=== PATIENT | female | born 1995 | race Caucasian/White ===

== ENCOUNTER → 2022-08-07 | Outpatient (CLI) | payer OTHER, SELFPAY ==
[2022-08-07 10:00] LABS: Absolute Lymphocyte Count 1.49 X10^3/uL (0.83-4.51); Absolute Neutrophil Count 1.9 X10^3/uL (2.0-7.7); Basophil# 0.03 X10^3/uL; Basophil% 0.8 % (0-1); Eosinophil# 0.05 X10^3/uL; Eosinophils% 1.3 % (0-5); Hematocrit 37.4 % (37-47); Hemoglobin 11.2 g/dL (12.0-15.0); Lymphocyte # 1.49 X10^3/ul (0.83-4.51); Lymphocyte % 38.5 % (19-41); Mean Corp Hgb Conc 29.9 g/dL (32-36); Mean Corpuscular Hgb 24.7 pg (27.0-32.0); Mean Corpuscular Volume 82.4 fL (81-99); Mean Platelet Vol. 12.1 fl (6.2-12.0); Monocyte# 0.36 X10^3/uL; Monocyte% 9.3 % (0-10); NRBC Flagged by Analyzer 0 % (0-5); Neutrophil # 1.93 X10^3/uL (2.7-7.7); Neutrophil % 49.8 % (47-70); Platelet Count 217 K/mm3 (150-450); RBC Distribution Width CV 14.6 % (11.6-14.6); RBC Distribution Width SD 43.8 fl (35.1-43.9); Red Blood Count 4.54 M/mm3 (4.2-5.4); White Blood Count 3.9 K/mm3 (4.4-11.0)
[2022-08-07 10:41] LABS: Vitamin B12 831 pg/mL (211-911)
[2022-08-07 11:20] LABS: ALB/GLOB Ratio 0.9 RATIO (0.9-2.4); AST(SGOT) 18 U/L (15-37); Alanine Aminotransfer ALT/SGPT 17 U/L (13-56); Albumin, Serum 3.2 g/dL (3.2-5.0); Alkaline Phosphatase 39 U/L (45-117); Anion Gap 7 (5-15); BUN 9 mg/dL (7-18); BUN/Creat Ratio 10.5 RATIO (10-20); Calcium,Total 8.6 mg/dL (8.5-10.1); Chloride 111 mmol/L (98-107); Creatinine, Serum 0.86 mg/dL (0.55-1.02); EST Glomerular Filtration Rate 86 mL/min (>60); Est Glom Filt Rate - Afr Amer 104 mL/min (>60); Ferritin 4 ng/mL (8-252); Globulin 3.6 g/dL (2.2-4.2); Glucose 91 mg/dL (74-106); Iron 34 ug/dL (50-170); Protein, Total 6.8 g/dL (6.4-8.2); Sodium Level 142 mmol/L (136-145); Thyroid Stim Hormone (TSH) 1.78 uIU/mL (0.358-3.74)
== END | disposition home or self-care (01) ==
LOC: MFPLAB 09:23
PROVIDERS: PCP Family Medicine; Referring Provider Family Medicine; Visit Provider Family Medicine
DX: D64.9 Anemia, unspecified (principal); F41.9 Anxiety disorder, unspecified
CPT/HCPCS: 36415; 80053; 82607; 82728; 82746; 83540; 84443; 85025

== ENCOUNTER → 2022-09-04 | Outpatient (CLI) | payer OTHER, SELFPAY ==
[2022-09-04 17:45] LABS: Absolute Lymphocyte Count 1.92 X10^3/uL (0.83-4.51); Absolute Neutrophil Count 2.5 X10^3/uL (2.0-7.7); Basophil# 0.04 X10^3/uL; Basophil% 0.8 % (0-1); Eosinophil# 0.07 X10^3/uL; Eosinophils% 1.4 % (0-5); Hematocrit 37.8 % (37-47); Hemoglobin 11.6 g/dL (12.0-15.0); Lymphocyte # 1.92 X10^3/ul (0.83-4.51); Lymphocyte % 38.3 % (19-41); Mean Corp Hgb Conc 30.7 g/dL (32-36); Mean Corpuscular Hgb 25.6 pg (27.0-32.0); Mean Corpuscular Volume 83.4 fL (81-99); Mean Platelet Vol. 12.7 fl (6.2-12.0); Monocyte# 0.52 X10^3/uL; Monocyte% 10.4 % (0-10); NRBC Flagged by Analyzer 0 % (0-5); Neutrophil # 2.45 X10^3/uL (2.7-7.7); Neutrophil % 48.9 % (47-70); Platelet Count 218 K/mm3 (150-450); RBC Distribution Width CV 15.9 % (11.6-14.6); RBC Distribution Width SD 47.8 fl (35.1-43.9); Red Blood Count 4.53 M/mm3 (4.2-5.4)
[2022-09-04 18:13] LABS: Ferritin 11 ng/mL (8-252); Iron 73 ug/dL (50-170); Iron Binding Capacity,Total 464 ug/dL (250-450)
== END | disposition home or self-care (01) ==
LOC: MFPLAB 14:51
PROVIDERS: PCP Family Medicine; Referring Provider Family Medicine; Visit Provider Family Medicine
DX: D50.9 Iron deficiency anemia, unspecified (principal)
CPT/HCPCS: 36415; 82728; 83540; 83550; 85025

== ENCOUNTER → 2022-09-30 | Outpatient (CLI) | payer OTHER, SELFPAY ==
[2022-09-30 17:48] LABS: Absolute Lymphocyte Count 2.39 X10^3/uL (0.83-4.51); Absolute Neutrophil Count 3.8 X10^3/uL (2.0-7.7); Basophil# 0.06 X10^3/uL; Basophil% 0.9 % (0-1); Eosinophil# 0.15 X10^3/uL; Eosinophils% 2.2 % (0-5); Hematocrit 40.3 % (37-47); Lymphocyte # 2.39 X10^3/ul (0.83-4.51); Lymphocyte % 34.5 % (19-41); Mean Corp Hgb Conc 32.3 g/dL (32-36); Mean Corpuscular Volume 83.8 fL (81-99); Mean Platelet Vol. 11.9 fl (6.2-12.0); Monocyte# 0.52 X10^3/uL; Monocyte% 7.5 % (0-10); NRBC Flagged by Analyzer 0 % (0-5); Neutrophil # 3.79 X10^3/uL (2.7-7.7); Neutrophil % 54.8 % (47-70); Platelet Count 239 K/mm3 (150-450); RBC Distribution Width CV 15.3 % (11.6-14.6); Red Blood Count 4.81 M/mm3 (4.2-5.4); White Blood Count 6.9 K/mm3 (4.4-11.0)
[2022-09-30 18:35] LABS: Ferritin 10 ng/mL (8-252); Iron 95 ug/dL (50-170); Iron Binding Capacity,Total 482 ug/dL (250-450); PERCENT IRON SATURATION 19.7 % (15.0-55.0)
== END | disposition home or self-care (01) ==
LOC: MFPLAB 16:51
PROVIDERS: PCP Family Medicine; Referring Provider Family Medicine; Visit Provider Family Medicine
DX: D50.9 Iron deficiency anemia, unspecified (principal)
CPT/HCPCS: 36415; 82728; 83540; 83550; 85025

== ENCOUNTER → 2022-11-27 | Outpatient (CLI) | payer OTHER, SELFPAY ==
[2022-11-27 17:41] LABS: Absolute Lymphocyte Count 1.94 X10^3/uL (0.83-4.51); Absolute Neutrophil Count 2.2 X10^3/uL (2.0-7.7); Basophil# 0.04 X10^3/uL; Basophil% 0.8 % (0-1); Eosinophil# 0.09 X10^3/uL; Eosinophils% 1.9 % (0-5); Hematocrit 40.3 % (37-47); Hemoglobin 12.8 g/dL (12.0-15.0); Lymphocyte # 1.94 X10^3/ul (0.83-4.51); Lymphocyte % 40.9 % (19-41); Mean Corp Hgb Conc 31.8 g/dL (32-36); Mean Corpuscular Hgb 28.3 pg (27.0-32.0); Monocyte# 0.46 X10^3/uL; Monocyte% 9.7 % (0-10); NRBC Flagged by Analyzer 0 % (0-5); Neutrophil # 2.19 X10^3/uL (2.7-7.7); Neutrophil % 46.3 % (47-70); Platelet Count 251 K/mm3 (150-450); RBC Distribution Width CV 13.3 % (11.6-14.6); RBC Distribution Width SD 43.1 fl (35.1-43.9); Red Blood Count 4.53 M/mm3 (4.2-5.4); White Blood Count 4.7 K/mm3 (4.4-11.0)
[2022-11-27 18:11] LABS: Ferritin 17 ng/mL (8-252); Iron 77 ug/dL (50-170); Iron Binding Capacity,Total 415 ug/dL (250-450)
== END | disposition home or self-care (01) ==
LOC: MFPLAB 14:49
PROVIDERS: PCP Family Medicine; Referring Provider Family Medicine; Visit Provider Family Medicine
DX: D50.9 Iron deficiency anemia, unspecified (principal)
CPT/HCPCS: 36415; 82728; 83540; 83550; 85025

== ENCOUNTER → 2023-01-29 | Outpatient (CLI) | payer OTHER, SELFPAY ==
[2023-01-29 18:01] LABS: Absolute Lymphocyte Count 1.63 X10^3/uL (0.83-4.51); Absolute Neutrophil Count 3.1 X10^3/uL (2.0-7.7); Basophil# 0.04 X10^3/uL; Basophil% 0.7 % (0-1); Eosinophil# 0.17 X10^3/uL; Eosinophils% 3.1 % (0-5); Hematocrit 41.5 % (37-47); Hemoglobin 13.6 g/dL (12.0-15.0); Lymphocyte # 1.63 X10^3/ul (0.83-4.51); Lymphocyte % 29.6 % (19-41); Mean Corp Hgb Conc 32.8 g/dL (32-36); Mean Corpuscular Hgb 29.3 pg (27.0-32.0); Mean Corpuscular Volume 89.4 fL (81-99); Mean Platelet Vol. 11.7 fl (6.2-12.0); Monocyte# 0.59 X10^3/uL; Monocyte% 10.7 % (0-10); NRBC Flagged by Analyzer 0 % (0-5); Neutrophil # 3.06 X10^3/uL (2.7-7.7); Neutrophil % 55.5 % (47-70); Platelet Count 224 K/mm3 (150-450); RBC Distribution Width CV 12.4 % (11.6-14.6); RBC Distribution Width SD 40.4 fl (35.1-43.9); Red Blood Count 4.64 M/mm3 (4.2-5.4); White Blood Count 5.5 K/mm3 (4.4-11.0)
[2023-01-29 18:23] LABS: Ferritin 22 ng/mL (8-252); Iron 30 ug/dL (50-170); Iron Binding Capacity,Total 408 ug/dL (250-450)
== END | disposition home or self-care (01) ==
LOC: MTLAB 14:51
PROVIDERS: PCP Family Medicine; Referring Provider Family Medicine; Visit Provider Family Medicine
DX: D50.9 Iron deficiency anemia, unspecified (principal)
CPT/HCPCS: 36415; 82728; 83540; 83550; 85025

== ENCOUNTER 2023-08-22 06:02 | Emergency (ER) | payer OTHER, SELFPAY ==
[2023-08-22 06:03] VITALS: BP 114/89; PULSE 71; RESP 18; TEMP 36.4; O2SAT 97; BMI 21.9
--- NOTE | 2023-08-22 06:15 | EDS_ITS ---
HPI <Dr. Mateo Whittington MD - Last Filed: 08/22/23 07:34> HPI - GI History of Present Illness Chief Complaint: Nausea/Vomiting Informant: patient Narrative Narrative: Patient started having lower abdominal discomfort 6 or 7 hours ago, and feeling like she needed to have a bowel movement. She has a longstanding history of constipation for the last year or 2 states it does not seem to matter what she eats, and this is similar discomfort that she has had prior to needing to go and have a bowel movement. She was unable to go this morning. She tried a suppository, this resulted in worsening discomfort, and she vomited twice, and so came to the emergency department. No history of any abdominal surgeries. Not currently . [facility] <Dr. Mateo Whittington MD - Last Filed: 08/22/23 07:34> [facility] Medical History ADHD Depression Iron deficiency anemia Home Medications dextroamphetamine-amphetamine ER 25 mg 24hr capsule,extend release 25 mg PO DAILY 08/22/23 [History Last Taken Unknown] drospirenone 3 mg-ethinyl estradiol 0.02 mg tablet 1 tab PO DAILY 08/22/23 [History Last Taken Unknown] sertraline 100 mg tablet 100 mg PO DAILY 08/22/23 [History Last Taken Unknown] Allergy/AdvReac Type Severity Reaction Status Date / Time No Known Allergies Allergy Verified 08/22/23 06:09 Social History Smoking Status: Never smoker ROS <Dr. Mateo Whittington MD - Last Filed: 08/22/23 07:34> ROS ED Constitutional Constitutional ED: Denies chills or fever(s) Eyes Eyes: Denies change in vision or diplopia ENT ENT ED: Denies rhinorrhea or sore throat Cardiovascular Cardiovascular: Denies chest pain or palpitations Respiratory/Chest Respiratory/Chest: Denies cough or dyspnea Gastrointestinal Gastrointestinal: Reports abdominal pain, constipation, nausea and vomiting; Denies diarrhea, hematemesis, hematochezia or melena Genitourinary Genitourinary ED: Denies dysuria or hematuria Musculoskeletal Musculoskeletal: Denies back pain or neck pain Integumentary Denies abscess or rash Neurologic Neurologic: Denies headache(s), paresthesias or weakness Psychiatric Psychiatric: Denies anxiety or suicidal thoughts EXAM <Dr. Mateo Whittington MD - Last Filed: 08/22/23 07:34> Physical Exam Const Vital Signs: 08/22/23 06:03 Temperature 97.6 F L Temperature Source Temporal Pulse Rate 71 Respiratory Rate 18 Blood Pressure 114/89 H Blood Pressure Mean 97 Pulse Ox 97 Oxygen Delivery Method Room Air Positive well nourished and well developed General Appearance ED: well developed and NAD HEENT Reports moist mucous membranes normocephalic and atraumatic Eyes PERRL and EOMs intact bilaterally Neck full ROM and supple Resp normal respiratory effort and clear to auscultation bilaterally Cardio regular rate, regular rhythm and no murmurs Rate: Negative for tachycardic GI non-distended GI Narrative: Mild diffuse nonfocal tenderness without guarding or rebound. Auscultation: normoactive bowel sounds Palpation: soft Back/Spine no CVA tenderness General Back: other FROM Extremity normal to inspection General Extremety ED: Negative for edema, pulses abnormal or tenderness General Extremity: Negative for edema or pulses abnormal Neuro oriented x3, CN's II-XII intact bilaterally and no sensory deficits noted Sensorium / Orientation: awake and alert Motor Exam: strength 5/5 throughout Skin no rashes or lesions noted and no wounds <Dr. Fercho Munguia DO - Last Filed: 08/22/23 08:43> Physical Exam Const Vital Signs: 08/22/23 06:03 Temperature 97.6 F L Temperature Source Temporal Pulse Rate 71 Respiratory Rate 18 Blood Pressure 114/89 H Blood Pressure Mean 97 Pulse Ox 97 Oxygen Delivery Method Room Air MDM <Dr. Mateo Whittington MD - Last Filed: 08/22/23 07:34> [facility] Narrative Medical decision making narrative: Patient states she has had the symptoms before with constipation, but it seems worse tonight. No history of any abdominal surgeries, history and exam are inconsistent with appendicitis at this time, so that a bowel obstruction are less likely. Feels like she needs to have a bowel movement but is unable. Constipation is the most likely pathology here. I think treating her for that first prior to performing a work-up plus or minus CT imaging would be preferable and less likely to harm the patient given the radiation of the CT. I discussed that with her and her significant other and she is in agreement to trying treatment with an enema and Zofran ODT for her nausea. She tried the enema several different times but only had water come mild and no significant effects and does not want to try it again. We discussed options, she is amenable to labs, acute abdominal series, and some dicyclomine for discomfort, and further evaluation. Checked out at shift change. Lab Data Labs: Laboratory Results - last 24 hr 08/22/23 07:45 WBC 10.0 RBC 4.49 Hgb 12.3 Hct 38.5 MCV 85.7 MCH 27.4 MCHC 31.9 L RDW Std Deviation 38.3 RDW Coeff of Kim 12.3 Plt Count 289 MPV 11.3 Immature Gran % (Auto) 0.300 Neut % (Auto) 77.6 H Lymph % (Auto) 15.7 L Rains % (Auto) 5.1 Eos % (Auto) 0.7 Baso % (Auto) 0.6 Absolute Neuts (auto) 7.7 Absolute Lymphs (auto) 1.57 Nucleated RBC % 0 Sodium 139 Potassium 3.8 Chloride 107 Carbon Dioxide 25.0 Anion Gap 7 BUN 11 Creatinine 0.90 Estim Creat Clear Calc 82.51 Est GFR (MDRD) Af Amer 97 Est GFR (MDRD) Non-Af 80 BUN/Creatinine Ratio 12.2 Glucose 114 H Calcium 8.8 Total Bilirubin 0.20 AST 22 ALT 23 Alkaline Phosphatase 51 Total Protein 6.8 Albumin 3.2 Globulin 3.6 Albumin/Globulin Ratio 0.9 Lipase 46 Serum , Qual NEGATIVE Radiography Diagnostic Testing: Clinical Impression(s) from Imaging Studies Acute Abdomen Series 08/22/23 08:08 IMPRESSION: Normal x-ray examination of the chest, abdomen, and pelvis. Electronically Signed: Refugio Rajput MD at 8:21 EDT , <Dr. Fercho Munguia, DO - Last Filed: 08/22/23 08:43> [facility] Lab Data Attestation: I reviewed the patient's lab results. Lab results narrative: CBC was reviewed and was within normal limits. Comprehensive metabolic profile was reviewed and was in normal limits. Serum hCG was reviewed and was negative. Lipase was reviewed and was normal at 46. Labs: Laboratory Results - last 24 hr 08/22/23 07:45 WBC 10.0 RBC 4.49 Hgb 12.3 Hct 38.5 MCV 85.7 MCH 27.4 MCHC 31.9 L RDW Std Deviation 38.3 RDW Coeff of Kim 12.3 Plt Count 289 MPV 11.3 Immature Gran % (Auto) 0.300 Neut % (Auto) 77.6 H Lymph % (Auto) 15.7 L Rains % (Auto) 5.1 Eos % (Auto) 0.7 Baso % (Auto) 0.6 Absolute Neuts (auto) 7.7 Absolute Lymphs (auto) 1.57 Nucleated RBC % 0 Sodium 139 Potassium 3.8 Chloride 107 Carbon Dioxide 25.0 Anion Gap 7 BUN 11 Creatinine 0.90 Estim Creat Clear Calc 82.51 Est GFR (MDRD) Af Amer 97 Est GFR (MDRD) Non-Af 80 BUN/Creatinine Ratio 12.2 Glucose 114 H Calcium 8.8 Total Bilirubin 0.20 AST 22 ALT 23 Alkaline Phosphatase 51 Total Protein 6.8 Albumin 3.2 Globulin 3.6 Albumin/Globulin Ratio 0.9 Lipase 46 Serum , Qual NEGATIVE Radiography Diagnostic Testing: Clinical Impression(s) from Imaging Studies Acute Abdomen Series 08/22/23 08:08 IMPRESSION: Normal x-ray examination of the chest, abdomen, and pelvis. Electronically Signed: Refugio Rajput MD at 8:21 EDT , Acute abdominal x-rays were obtained. There are 4 views. On my independent interpretation, there is no evidence of bowel obstruction or perforation. There is no ileus noted. There is moderate stool throughout the colon. There is no acute cardiopulmonary process. Radiologist also interpreted the x-rays and agrees. Treatment and Re-Evaluation :: Patient was advised of her findings. Patient is feeling better on reevaluation. Patient was advised that this is most likely constipation. Patient was instructed to use MiraLAX as needed. Patient was instructed to follow-up with her primary care physician in 5 to 7 days. Patient understood and was agreeable with the plan. All questions were answered. Discharge Plan Triage Chief Complaint: Nausea/Vomiting ED Provider: Mateo Whittington Dx/Rx/DC Orders Clinical Impression: Diffuse abdominal pain, Constipation, Vomiting Instructions: ED Constipation (Adult) Prescriptions: No Action sertraline 100 mg tablet 100 mg PO DAILY Patient Comments: TAKE 1 TABLET BY MOUTH DAILY dextroamphetamine-amphetamine 25 mg capsule,extended release 24hr 25 mg PO DAILY Patient Comments: TAKE 1 CAPSULE BY MOUTH EVERY DAY drospirenone-ethinyl estradiol 3-0.02 mg tablet 1 tab PO DAILY Patient Comments: TAKE 1 TABLET BY MOUTH EVERY DAY Primary Care Provider: Kenneth Dave Referrals: Kenneth Dave MD [Primary Care Provider] - 3-5 Days if not improving Activity Restrictions/Additional Instructions: Consider getting generic equivalent of MiraLAX which is available [id number], and taking 1 capful daily along with plenty of fluids for stool softening effect. This is not addictive and safe to use daily. Disposition Disposition: Home, Self Care
[2023-08-22] MEDS: Ondansetron ODT 4 MG Tablet 8 MG PO (06:36)
[2023-08-22] MEDS: Dicyclomine 10 MG Capsule 20 MG PO (07:45)
[2023-08-22 07:48] LABS: Absolute Lymphocyte Count 1.57 X10^3/uL (0.83-4.51); Absolute Neutrophil Count 7.7 X10^3/uL (2.0-7.7); Basophil# 0.06 X10^3/uL; Basophil% 0.6 % (0-1); Eosinophil# 0.07 X10^3/uL; Eosinophils% 0.7 % (0-5); Hematocrit 38.5 % (37-47); Hemoglobin 12.3 g/dL (12.0-15.0); Lymphocyte # 1.57 X10^3/ul (0.83-4.51); Lymphocyte % 15.7 % (19-41); Mean Corp Hgb Conc 31.9 g/dL (32-36); Mean Corpuscular Hgb 27.4 pg (27.0-32.0); Mean Corpuscular Volume 85.7 fL (81-99); Mean Platelet Vol. 11.3 fl (6.2-12.0); Monocyte# 0.51 X10^3/uL; Monocyte% 5.1 % (0-10); NRBC Flagged by Analyzer 0 % (0-5); Neutrophil # 7.73 X10^3/uL (2.7-7.7); Neutrophil % 77.6 % (47-70); Platelet Count 289 K/mm3 (150-450); RBC Distribution Width CV 12.3 % (11.6-14.6); RBC Distribution Width SD 38.3 fl (35.1-43.9); Red Blood Count 4.49 M/mm3 (4.2-5.4)
[2023-08-22 07:56] LABS: Internal QC Validated? YES +Cl - CLEAR BKGD; Pregnancy, Serum, hCG Quali. NEGATIVE Negative
[2023-08-22 08:05] LABS: ALB/GLOB Ratio 0.9 RATIO (0.9-2.4); AST(SGOT) 22 U/L (15-37); Alanine Aminotransfer ALT/SGPT 23 U/L (13-56); Albumin, Serum 3.2 g/dL (3.2-5.0); Alkaline Phosphatase 51 U/L (45-117); Anion Gap 7 (5-15); BUN 11 mg/dL (7-18); BUN/Creat Ratio 12.2 RATIO (10-20); Calcium,Total 8.8 mg/dL (8.5-10.1); Chloride 107 mmol/L (98-107); EST Glomerular Filtration Rate 80 mL/min (>60); Est Glom Filt Rate - Afr Amer 97 mL/min (>60); Estimated Creatinine Clearance 82.51 ml/min; Globulin 3.6 g/dL (2.2-4.2); Glucose 114 mg/dL (74-106); Lipase 46 U/L (13-75); Potassium 3.8 mmol/L (3.5-5.1); Protein, Total 6.8 g/dL (6.4-8.2); Sodium Level 139 mmol/L (136-145)
--- NOTE | 2023-08-22 08:08 | RAD_ITS ---
STUDY: X-RAY - ACUTE ABDOMINAL SERIES REASON FOR EXAM: Female, 27 years old. Pain, vomiting TECHNIQUE: Single view of the chest. Supine, and erect view(s) of the abdomen were obtained. COMPARISON: None. FINDINGS: The lungs are clear and expanded. Normal size heart. Normal mediastinum and linnette. Normal visualized pulmonary arteries. Normal visualized aortic arch and descending thoracic aorta. There is a non-specific bowel gas pattern. The soft tissue structures of the abdomen and pelvis are unremarkable. Normal visualized osseous structures. RAD/Acute Abdomen Inc Chest IMPRESSION: Normal x-ray examination of the chest, abdomen, and pelvis. Electronically Signed: Refugio Rajput MD at 8:21 EDT ,
[2023-08-22] MEDS: Magnesium Citrate 300 ML 150 ML PO (08:45)
== END 2023-08-22 08:51 | disposition home or self-care (01) ==
PROVIDERS: Emergency Provider Emergency Medicine; PCP Family Medicine; Visit Provider Emergency Medicine
DX: R10.84 Generalized abdominal pain (principal); K59.00 Constipation, unspecified; R11.2 Nausea with vomiting, unspecified
CPT/HCPCS: 74022; 80053; 83690; 84703; 85025; 99285

== ENCOUNTER → 2024-05-22 | Outpatient (CLI) | payer OTHER, SELFPAY ==
--- NOTE | 2024-05-22 07:24 | US_ITS ---
STUDY: FIRST TRIMESTER OBSTETRICAL ULTRASOUND (TWINS) REASON FOR EXAM: Female, 28 years old. LMP: viablity TECHNIQUE: Transvaginal TECHNICAL QUALITY: Adequate. COMPARISON: None. FINDINGS: There are two demonstrated intrauterine gestational sacs. The amniotic membrane cannot be visualized. The estimated gestation age (EGA) by LMP is 7 weeks, 3 days. The estimated date of delivery (MANDI) by LMP is January 05, 2025.. BABY A The mean sac diameter (MSD) measure 2.8 cm, indicating an estimated gestational age (EGA) of weeks, 1 days. There is a visualized yolk sac. The yolk sac measures 2.1 mm. There is visualization of an embryo. The crown-rump length (CRL) measures 1.1 cm, indicating an estimated gestational age (EGA) of 7 weeks, 2 days. The estimated gestation age (EGA) by US is 7 weeks, 2 days. The estimated date of delivery (MANDI) by US is January 06, 2025. There is demonstrated cardiac activity with a heart rate 1 4 bpm. BABY B The mean sac diameter (MSD) measure 2.35 cm, indicating an estimated gestational age (EGA) of 7 weeks, 3 days. There is a visualized yolk sac. The yolk sac measures 2.7 mm. There is visualization of an embryo. The crown-rump length (CRL) measures 9.3 mm, indicating an estimated gestational age (EGA) of 7 weeks, 3 days. The estimated gestation age (EGA) by US is 7 weeks, 2 days. The estimated date of delivery (MANDI) by US is January 06, 2025. There is demonstrated cardiac activity with a heart rate 132 bpm. MATERNAL ANATOMY The uterus measures 8.5 cm x 6.9 cm x 4.9 cm cm. There is no demonstrated uterine fibroid. The cervix is closed. The right ovary measures 2.7 cm x 1.4 cm x 1 cm. There is no right ovarian cyst. There is no visualized right adnexal mass or complex lesion. The left ovary measures 3.4 cm x 3.4 cm x 1.9 cm. There is no left ovarian cyst. There is no visualized left adnexal mass or complex lesion. There is no fluid in the cul de sac. US/Transvaginal w/Preg US IMPRESSION: Life intrauterine twin gestation with a mean gestational age of 7 weeks and 2 days. Electronically Signed: Clay Acuna MD at 13:22 EDT ,
== END | disposition home or self-care (01) ==
LOC: US 07:24
PROVIDERS: PCP Family Medicine; Referring Provider Advanced Practice Midwife; Visit Provider Advanced Practice Midwife
DX: Z34.90 Encounter for supervision of normal pregnancy, unspecified, unspecified trimester (principal); Z3A.00 Weeks of gestation of pregnancy not specified
CPT/HCPCS: 76817

== ENCOUNTER → 2024-06-01 | Outpatient (CLI) | payer OTHER, SELFPAY ==
[2024-06-06 11:59] LABS: Chlamydia By Nucleic Acid AMP Negative (Negative); Gonococcus By Nucleic Acid AMP Negative (Negative)
== END | disposition home or self-care (01) ==
PROVIDERS: PCP Family Medicine; Referring Provider Obstetrics & Gynecology; Visit Provider Obstetrics & Gynecology
DX: Z34.90 Encounter for supervision of normal pregnancy, unspecified, unspecified trimester (principal)
CPT/HCPCS: 87086; 87491; 87591

== ENCOUNTER → 2024-06-12 | Outpatient (CLI) | payer OTHER, SELFPAY ==
[2024-06-12 15:04] LABS: Absolute Lymphocyte Count 2.09 X10^3/uL (0.83-4.51); Absolute Neutrophil Count 8.8 X10^3/uL (2.0-7.7); Basophil# 0.04 X10^3/uL; Basophil% 0.3 % (0-1); Eosinophil# 0.11 X10^3/uL; Eosinophils% 0.9 % (0-5); Hematocrit 34.5 % (37-47); Hemoglobin 11.1 g/dL (12.0-15.0); Lymphocyte # 2.09 X10^3/ul (0.83-4.51); Lymphocyte % 17.7 % (19-41); Mean Corp Hgb Conc 32.2 g/dL (32-36); Mean Corpuscular Hgb 26.6 pg (27.0-32.0); Mean Corpuscular Volume 82.7 fL (81-99); Mean Platelet Vol. 11.6 fl (6.2-12.0); Monocyte# 0.63 X10^3/uL; Monocyte% 5.3 % (0-10); NRBC Flagged by Analyzer 0 % (0-5); Neutrophil # 8.84 X10^3/uL (2.7-7.7); Neutrophil % 75.2 % (47-70); Platelet Count 245 K/mm3 (150-450); RBC Distribution Width CV 13.7 % (11.6-14.6); RBC Distribution Width SD 41.1 fl (35.1-43.9); Red Blood Count 4.17 M/mm3 (4.2-5.4); White Blood Count 11.8 K/mm3 (4.4-11.0)
[2024-06-12 15:54] LABS: HIV - WCH Non-Reactive (Nonreactive); Hepatitis B Surface Antigen Non-Reactive (Nonreactive); Hepatitis C Antibody Non-Reactive (Nonreactive); Rubella IgG Reactive (Nonreactive); Syphilis Antibodies Non-reactive
[2024-06-15 05:07] LABS: V-Zoster IgG (Immunity) 1228 index (Immune >165)
== END | disposition home or self-care (01) ==
LOC: MTLAB 13:33
PROVIDERS: PCP Family Medicine; Referring Provider Obstetrics & Gynecology; Visit Provider Obstetrics & Gynecology
DX: O09.90 Supervision of high risk pregnancy, unspecified, unspecified trimester (principal); Z3A.00 Weeks of gestation of pregnancy not specified
CPT/HCPCS: 85025; 86703; 86762; 86780; 86787; 86803; 86850; 86900; 86901; 87340

== ENCOUNTER → 2024-08-11 | Outpatient (CLI) | payer OTHER, SELFPAY | END | disposition home or self-care (01) | LOC: MTLAB 14:21 | PROVIDERS: PCP Family Medicine; Referring Provider Family Medicine; Visit Provider Family Medicine | DX: Z34.90 Encounter for supervision of normal pregnancy, unspecified, unspecified trimester (principal) | CPT/HCPCS: 36415; 84443 ==

== ENCOUNTER → 2024-10-06 | Outpatient (CLI) | payer OTHER, SELFPAY ==
[2024-10-06 16:27] LABS: Absolute Lymphocyte Count 2.27 X10^3/uL (0.83-4.51); Basophil# 0.07 X10^3/uL; Basophil% 0.6 % (0-1); Eosinophil# 0.21 X10^3/uL; Eosinophils% 1.7 % (0-5); Hematocrit 29.5 % (37-47); Hemoglobin 8.9 g/dL (12.0-15.0); Lymphocyte # 2.27 X10^3/ul (0.83-4.51); Lymphocyte % 17.9 % (19-41); Mean Corp Hgb Conc 30.2 g/dL (32-36); Mean Corpuscular Hgb 23.8 pg (27.0-32.0); Mean Corpuscular Volume 78.9 fL (81-99); Mean Platelet Vol. 12.2 fl (6.2-12.0); Monocyte# 0.84 X10^3/uL; Monocyte% 6.6 % (0-10); NRBC Flagged by Analyzer 0 % (0-5); Neutrophil # 8.99 X10^3/uL (2.7-7.7); Neutrophil % 70.8 % (47-70); Platelet Count 212 K/mm3 (150-450); RBC Distribution Width CV 13.4 % (11.6-14.6); RBC Distribution Width SD 38.5 fl (35.1-43.9); Red Blood Count 3.74 M/mm3 (4.2-5.4); White Blood Count 12.7 K/mm3 (4.4-11.0)
[2024-10-06 16:36] LABS: Glucose Challenge Gest 1H 50g 70 mg/dL (70-140)
[2024-10-09 16:03] LABS: HIV - WCH Non-Reactive (Nonreactive); Syphilis Antibodies Non-reactive
== END | disposition home or self-care (01) ==
LOC: BWCLAB 13:28
PROVIDERS: PCP Family Medicine; Referring Provider Obstetrics & Gynecology; Visit Provider Obstetrics & Gynecology
DX: O09.90 Supervision of high risk pregnancy, unspecified, unspecified trimester (principal); Z3A.00 Weeks of gestation of pregnancy not specified; Z13.1 Encounter for screening for diabetes mellitus
CPT/HCPCS: 36415; 82950; 85025; 86703; 86780

== ENCOUNTER → 2024-10-10 | Outpatient (CLI) | payer OTHER, SELFPAY ==
[2024-10-10 15:27] LABS: Iron 23 ug/dL (50-170); Iron Binding Capacity,Total 540 ug/dL (250-450); PERCENT IRON SATURATION 4.3 % (15.0-55.0)
[2024-10-12 08:31] LABS: Vitamin B12 404 pg/mL (211-911)
== END | disposition home or self-care (01) ==
LOC: MFPLAB 13:36
PROVIDERS: PCP Family Medicine; Referring Provider Obstetrics & Gynecology; Visit Provider Obstetrics & Gynecology
DX: O99.019 Anemia complicating pregnancy, unspecified trimester (principal); Z3A.00 Weeks of gestation of pregnancy not specified
CPT/HCPCS: 36415; 82607; 83540; 83550

== ENCOUNTER 2024-10-26 11:41 | Outpatient (CLI) | payer OTHER, SELFPAY ==
[2024-10-26 12:02] VITALS: BP 114/56; PULSE 105; RESP 16; TEMP 36.2; O2SAT 98
[2024-10-26] MEDS: 0.9% NaCl Peripheral Flush Adult/Peds IV (12:09)
[2024-10-26] MEDS: Iron Sucrose Complex 300 MG in 0.9% Normal Saline (250mL Bag) 250 ML 177 MG IV (12:26)
[2024-10-26 14:43] VITALS: BP 106/62; PULSE 98; RESP 16; TEMP 36.2; O2SAT 98
== END 2024-10-26 23:59 | disposition home or self-care (01) ==
PROVIDERS: PCP Family Medicine; Referring Provider Obstetrics & Gynecology; Visit Provider Obstetrics & Gynecology
DX: D64.9 Anemia, unspecified (principal)
CPT/HCPCS: 96365; 96366; J1756; A4216

== ENCOUNTER 2024-11-01 12:26 | Outpatient (CLI) | payer OTHER, SELFPAY ==
[2024-11-01 12:32] VITALS: BP 111/67; PULSE 93; RESP 16; TEMP 35.7; O2SAT 100
[2024-11-01] MEDS: 0.9% NaCl Peripheral Flush Adult/Peds IV (12:35)
[2024-11-01] MEDS: Iron Sucrose Complex 300 MG in 0.9% Normal Saline (250mL Bag) 250 ML 177 MG IV (12:49)
[2024-11-01 14:42] VITALS: BP 106/63; PULSE 99
== END 2024-11-01 23:59 | disposition home or self-care (01) ==
LOC: MEDOUTP 12:26
PROVIDERS: PCP Family Medicine; Referring Provider Obstetrics & Gynecology; Visit Provider Obstetrics & Gynecology
DX: D64.9 Anemia, unspecified (principal)
CPT/HCPCS: 96365; 96366; J1756; A4216

== ENCOUNTER 2024-11-08 12:37 | Outpatient (CLI) | payer OTHER, SELFPAY ==
[2024-11-08 12:46] VITALS: BP 110/62; PULSE 933; RESP 16; TEMP 36
[2024-11-08] MEDS: 0.9% NaCl Peripheral Flush Adult/Peds IV (12:49)
[2024-11-08] MEDS: 0.9% Normal Saline (100mL Bag) 100 ML 15 ML IV (12:50)
[2024-11-08] MEDS: Iron Sucrose Complex 300 MG in 0.9% Normal Saline (250mL Bag) 250 ML 177 MG IV (13:17)
[2024-11-08 15:13] VITALS: BP 101/60; PULSE 98; RESP 16; TEMP 36.7; O2SAT 99
== END 2024-11-08 23:59 | disposition home or self-care (01) ==
LOC: MEDOUTP 12:37
PROVIDERS: PCP Family Medicine; Referring Provider Obstetrics & Gynecology; Visit Provider Obstetrics & Gynecology
DX: D64.9 Anemia, unspecified (principal)
CPT/HCPCS: 96365; 96366

== ENCOUNTER 2024-11-29 15:02 | Outpatient (CLI) | payer OTHER, SELFPAY | END 2024-11-29 15:55 | disposition home or self-care (01) | LOC: WPOUT 15:04 → WP 15:04 | PROVIDERS: PCP Family Medicine; Referring Provider Obstetrics & Gynecology; Visit Provider Obstetrics & Gynecology | DX: Z00.00 Encounter for general adult medical examination without abnormal findings (principal) ==

== ENCOUNTER → 2024-12-01 | Outpatient (CLI) | payer OTHER, SELFPAY | END | disposition home or self-care (01) | LOC: LABSPEC 16:10 | PROVIDERS: PCP Family Medicine; Referring Provider Obstetrics & Gynecology; Visit Provider Obstetrics & Gynecology | DX: O09.90 Supervision of high risk pregnancy, unspecified, unspecified trimester (principal); Z3A.00 Weeks of gestation of pregnancy not specified | CPT/HCPCS: 87081 ==

== ENCOUNTER 2024-12-03 10:57 | Outpatient (CLI) | payer OTHER, SELFPAY ==
[2024-12-03 11:24] VITALS: BP 118/73; PULSE 90
[2024-12-03 11:25] VITALS: PULSE 92; O2SAT 98
[2024-12-03 11:37] VITALS: BMI 31.1
[2024-12-03 11:48] LABS: ROM Internal Control Test YES-OK TO RESULT pt. (Internal QC); ROM Patient Test Negative (Negative); Record Kit Lot#, ROM+ K2871
--- NOTE | 2024-12-03 21:20 | OB.TRI.HP_ITS ---
HPI - General HPI Narrative PAOLO LAGOS, is a 29 y/o @ 35 weeks with di/di twins who presents to R/o ROM. She noted a small spot of clear fluid on her underwear. She is not currently leaking fluid. Maternal Data Information MANDI Calculator Estimated Delivery Date Method Current WG Current Estimate 01/05/25 Ultrasound #1 35w 2d # 2 PFSH PFSH Medical History Iron deficiency anemia ADHD Depression Home Medications ?Medication ?Instructions ?Recorded ?Last Taken ?Type docosahexaenoic acid 200 mg 1 mg PO DAILY 05/23/2407/19 09:00 History capsule ( DHA) promethazine 12.5 mg tablet 12.5 mg PO Q6H PRN nausea and 06/30/24 Unknown Rx vomiting or headache #30 tabs famotidine 20 mg tablet (Pepcid) 20 mg PO BID #60 tabs 09/20/24 Unknown Rx sucralfate 1 gram tablet (Carafate) 1 g PO QHS #60 tab s 09/20/24 Unknown Rx Allergy/AdvReac Type Severity Reaction Status Date / Time No Known Allergies Allergy Verified 12/03/24 11:34 Family History Grandmother Ovarian cancer, Onset Age: 80 Social History adopted: No household members: spouse current occupational status: employed 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 occupational exposures/hazards: No pets and animals: Yes pets and animals: cat(s) and dog(s) history of recent travel: Yes details: - February 2024 out of state: Yes out of country: Yes sexually active: Yes Smoking Status: Never smoker alcohol intake: current alcohol intake frequency: holidays/special occasions only details: Not while substance use type: does not use diet: vegetarian well-balanced diet: about half the time caffeine: Yes eating out: 1-3 times/week during the past year weight has: remained stable what type of physical activity do you participate in: walking and weight training frequency: 3-4 times per week duration: 30-45 minutes/day seatbelt use: always do you feel safe at home: Yes additional social history: [facility] [employer] Insurance History 1 Elective abortions Hx Para 0 Spontaneous abortions Hx # Term Pregnancies Ectopic pregnancies Hx # Pregnancies Multiple births # of living children 0 Visit Details Expected Delivery Route/Plan Labor Preferences- CB/BF classes: [] labor support person: [] labor intervention preferences: [] pain management options preferred: [] cut cord/dad catch: [] : [] PP control planned: [] discussed possible routes of delivery and associated risks: [] special requests: [] Plans Covid status: [] Flu vaccine: given Tdap vaccine: given Rhogam: na LARC form signed: [] movement and labor precautions reviewed. Problem list reviewed and updated with the most current plan of care details and appropriate orders placed. Relevant counseling for the gestational age provided. Continue routine care and follow up unless otherwise noted in visit notes/problem list details OB Flowsheet Initial Weight: Not Recorded Date -?-?-?-?-?-?-?-?-?-?-?-?- EGA Weight BP Urine Prot -?-?-?-?-?-?-?-?-?-?-?-?- Glucose FHR FuHt Pres Dilation -?-?-?-?-?-?-?-?-?-?-?-?- Effaced St Visit Note 06/01/24 -?-?-?-?-?-?-?-?-?-?-?-?- 8w 6d 125 lb 4 oz 131/80 -?-?-?-?-?-?-?-?-?-?-?-?- A 175 -?-?-?-?-?-?-?-?-?-?-?-?- B 172 A -?-?-?-?-?-?-?-?-?-?-?-?- B -?-?-?-?-?-?-?-?-?-?-?-?- A -?-?-?-?-?-?-?-?-?-?-?-?- B A JV- CRL consiste nt with previously established GA from hospital ultrasound. She has already seen M and diagnosed with dichorionic diamniotic twins. 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 -?-?-?-?-?-?-?-?-?-?-?-?- B 06/30/24 -?-?-?-?-?-?-?-?-?-?-?-?- 13w 0d 133 lb 2 oz 111/71 Nega tive -?-?-?-?-?-?-?-?-?-?-?-?- Negative A 150 -?-?-?-?-?-?-?-?-?-?-?-?- B 153 A -?-?-?-?-?-?-?-?-?-?-?-?- B -?-?-?-?-?-?-?-?-?-?-?-?- A -?-?-?-?-?-?-?-?-?-?-?-?- B A ZENOBIA gillis ts showed monozygotic twins, they are dichorionic, diamniotic however and recommended timing of delivery is 38 weeks. She will continue to follow with MFM. Has all ultrasounds scheduled. -?-?-?-?-?-?-?-?-?-?-?-?- B 07/28/24 -?-?-?-?-?-?-?-?-?-?-?-?- 17w 0d 140 lb 117/74 Negative -?-?-?-?-?-?-?-?-?-?-?-?- Negative A 145 -?-?-?-?-?-?-?-?-?-?-?-?- B 145 A -?-?-?-?-?-?-?-?-?-?-?-?- B -?-?-?-?-?-?-?-?-?-?-?-?- A -?-?-?-?-?-?-?-?-?-?-?-?- B A SM- no vb lof go od fm rectus muscle diasthesis noted and PT referral -?-?-?-?-?-?-?-?-?-?-?-?- B 08/25/24 -?-?-?-?-?-?-?-?-?-?-?-?- 21w 0d 148 lb 120/77 Negative -?-?-?-?-?-?-?-?-?-?-?-?- Negative A 140 -?-?-?-?-?-?-?-?-?-?-?-?- B 148 A -?-?-?-?-?-?-?-?-?-?-?-?- B -?-?-?-?-?-?-?-?-?-?-?-?- A -?-?-?-?-?-?-?-?-?-?-?-?- B A SM- n ovb lof go od fm n oregular ctx -?-?-?-?-?-?-?-?-?-?-?-?- B 09/20/24 -?-?-?-?-?-?-?-?-?-?-?-?- 24w 5d 159 lb 2 oz 118/78 Nega tive -?-?-?-?-?-?-?-?-?-?-?-?- Negative A 136 -?-?-?-?-?-?-?-?-?-?-?-?- B 138 A Cephalic -?-?-?-?-?-?-?-?-?-?-?-?- B Breech -?-?-?-?-?-?-?-?-?-?-?-?- A -?-?-?-?-?-?-?-?-?-?-?-?- B A JV- pt complains of severe indigestion. will start carafate + pepcid bid. plans to stop working Nov 13. no other complaints today -?-?-?-?-?-?-?-?-?-?-?-?- B 10/06/24 -?-?-?-?-?-?-?-?-?-?-?-?- 27w 0d 160 lb 2 oz 109/71 Nega tive -?-?-?-?-?-?-?-?-?-?-?-?- Negative A 147 -?-?-?-?-?-?-?-?-?-?-?-?- B 153 A Cephalic -?-?-?-?-?-?-?-?-?-?-?-?- B Transverse -?-?-?-?-?-?-?-?-?-?-?-?- A -?-?-?-?-?-?--?-?-?-?-?-?- B A JV- no lof, vagi nal bleeding, or dec fm. she is still unsure who is moving when but she mostly feels movements in middle/top/right of abdomen. has growth scan with mfm on 10/16/24. -?-?-?-?-?-?-?-?-?-?-?-?- B 10/27/24 -?-?-?-?-?-?-?-?-?-?-?-?- 30w 0d 169 lb 2 oz 107/66 Nega tive -?-?-?-?-?-?-?-?-?-?-?-?- Negative A 150 -?-?-?-?-?-?-?-?-?-?-?-?- B 135 A Cephalic -?-?-?-?-?-?-?-?-?-?-?-?- B Cephalic -?-?-?-?-?-?-?-?-?-?-?-?- A -?-?-?-?-?-?-?-?-?-?-?-?- B A SM- no vb lof go od fm nor egular ctx tdap today -?-?-?-?-?-?-?-?-?-?-?-?- B 11/03/24 -?-?-?-?-?-?-?-?-?-?-?-?- 31w 0d 171 lb 100/60 Negative -?-?-?-?-?-?-?-?-?-?-?-?- Negative A 131 -?-?-?-?-?-?-?-?-?-?-?-?- B 126 A Cephalic -?-?-?-?-?-?-?-?-?-?-?-?- B Cephalic -?-?-?-?-?-?-?-?-?-?-?-?- A -?-?-?-?-?-?-?-?-?-?-?-?- B A JV- no complaint s today. will work one more week and take leave. brought in FMLA papers. Has one more iron infusion. -?-?-?-?-?-?-?-?--?-?-?-?- B 11/16/24 -?-?-?-?-?-?-?-?-?-?-?-?- 32w 6d 175 lb 8 oz 115/72 Nega tive -?-?-?-?-?-?-?-?-?-?-?-?- Negative A 120 -?-?-?-?-?-?-?-?-?-?-?-?- B 124 A Cephalic -?-?-?-?-?-?-?-?-?-?-?-?- B Cephalic -?-?-?-?-?-?-?-?-?-?-?-?- A -?-?-?-?-?-?-?-?-?-?-?-?- B A JV- most recent growth scan from 11/14 reviewed and is normal. plan 38 week delivery. NSTs starting 36 weeks on l&D -?-?-?-?-?-?-?-?-?-?-?-?- B 12/01/24 -?-?-?-?-?-?-?-?-?-?-?-?- 35w 0d 178 lb 2 oz 112/73 Nega tive -?-?-?-?-?-?-?-?-?-?-?-?- Negative A 131 -?-?-?-?-?-?-?-?-?-?-?-?- B 128 A Cephalic -?-?-?-?-?-?-?-?-?-?-?-?- B Cephalic 0.5 -?-?-?-?-?-?-?-?-?-?-?-?- 70 A -2 -?-?-?-?-?-?-?-?-?-?-?-?- B A JV- gbs collecte d today. we discussed colostrum collection and labor precautions. plan IOL at 38 weeks if no labor by then. -?-?-?-?-?-?-?-?-?-?-?-?- B ROS Constitutional Constitutional: Reports systems reviewed and no addt'l complaints, except as documented Gastrointestinal Gastrointestinal: Denies bloating, constipation, cramping, diarrhea, nausea or vomiting Genitourinary Genitourinary: Reports other Details: Denies vaginal odor, vaginal bleeding, or vaginal discharge ; Denies difficulty urinating or flank pain NST FHR Rate Baby A Baseline: 150 Variability:: Moderate Accelerations:: 15 x 15 Decelerations:: None NST Reactive:: Yes FHR Category:: Category I FHR Rate Baby B Baseline: 125 Variability:: Moderate Accelerations:: 15 x 15 Decelerations:: None NST Reactive:: Yes Uterine Activity:: occasional contractions Assessment & Plan (1) Anemia affecting : (2) Rectus diastasis: COMMENT: PT consult (3) Dichorionic diamniotic twin gestation: COMMENT: weekly NSTs at 36 weeks and growth q4 weeks. Confirmed by MFM 05/30/24, Monozygotic identical twins from NIPT (4) Supervision of high-risk : COMMENT: PRR , MANDI 01/05, girls- : Cheo (5) ADHD: COMMENT: Stopped Adderall with + test (6) : QUALIFIERS: Weeks of gestation: 31 weeks Qualified Code(s): Z3A.31 - 31 weeks gestation of COMMENT: NIPT low risk. carrier negative. 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 normal anatomy (7) False labor before 37 completed weeks of gestation: PLAN: Plan ROM plus was negative and patient only noted the one spot on her underwear. ok to dc to home .nst's x 2 reactive Charges/Coding Multi Select Codes Urinary/Genital Urinary/Genital CPT Codes: 58909-97 non-stress test Interp
--- NOTE | 2024-12-03 21:20 | OB.TRI.NOTE ---
HPI - General HPI Narrative PAOLO LAGOS, is a 29 y/o @ 35 weeks with di/di twins who presents to R/o ROM. She noted a small spot of clear fluid on her underwear. She is not currently leaking fluid. Maternal Data Information MANDI Calculator Estimated Delivery Date Method Current WG Current Estimate 01/05/25 Ultrasound #1 35w 2d # 2 PFSH PFSH Medical History Iron deficiency anemia ADHD Depression Home Medications ?Medication ?Instructions ?Recorded ?Last Taken ?Type docosahexaenoic acid 200 mg 1 mg PO DAILY 05/23/24 12/03/24 09:00 History capsule ( DHA) promethazine 12.5 mg tablet 12.5 mg PO Q6H PRN nausea and 06/30/24 Unknown Rx vomiting or headache #30 tabs famotidine 20 mg tablet (Pepcid) 20 mg PO BID #60 tabs 09/20/24 Unknown Rx sucralfate 1 gram tablet (Carafate) 1 g PO QHS #60 tabs 09/20/24 Unknown Rx Allergy/AdvReac Type Severity Reaction Status Date / Time No Known Allergies Allergy Verified 12/03/24 11:34 Family History Grandmother Ovarian cancer, Onset Age: 80 Social History adopted: No household members: spouse current occupational status: employed 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 occupational 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/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: No pets and animals: Yes pets and animals: cat(s) and dog(s) history of recent travel: Yes details: - February 2024 out of state: Yes out of country: Yes sexually active: Yes Smoking Status: Never smoker alcohol intake: current alcohol intake frequency: holidays/special occasions only details: Not while substance use type: does not use diet: vegetarian well-balanced diet: about half the time caffeine: Yes eating out: 1-3 times/week during the past year weight has: remained stable what type of physical activity do you participate in: walking and weight training frequency: 3-4 times per week duration: 30-45 minutes/day seatbelt use: always do you feel safe at home: Yes additional social history: [facility] History 1 Elective abortions Hx Para 0 Spontaneous abortions Hx # Term Pregnancies Ectopic pregnancies Hx # Pregnancies Multiple births # of living children 0 Visit Details Expected Delivery Route/Plan Labor Preferences- CB/BF classes: [] labor support person: [] labor intervention preferences: [] pain management options preferred: [] cut cord/dad catch: [] : [] PP control planned: [] discussed possible routes of delivery and associated risks: [] special requests: [] Plans Covid status: [] Flu vaccine: given Tdap vaccine: given Rhogam: na LARC form signed: [] movement and labor precautions reviewed. Problem list reviewed and updated with the most current plan of care details and appropriate orders placed. Relevant counseling for the gestational age provided. Continue routine care and follow up unless otherwise noted in visit notes/problem list details OB Flowsheet Initial Weight: Not Recorded Date <del>?</del> EGA Weight BP Urine Prot <del>?</del> Glucose FHR FuHt Pres Dilation <del>?</del> Effaced St Visit Note 06/01/24 <del>?</del> 8w 6d 125 lb 4 oz 131/80 <del>?</del> A 175 <del>?</del> B 172 A <del>?</del> B <del>?</del> A <del>?</del> B A JV- CRL consistent with previously established GA from hospital ultrasound. She has already seen M and diagnosed with dichorionic diamniotic twins. 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 <del>?</del> B 06/30/24 <del>?</del> 13w 0d 133 lb 2 oz 111/71 Negative <del>?</del> Negative A 150 <del>?</del> B 153 A <del>?</del> B <del>?</del> A <del>?</del> B A JANEE- joanna results showed monozygotic twins, they are dichorionic, diamniotic however and recommended timing of delivery is 38 weeks. She will continue to follow with MFM. Has all ultrasounds scheduled. <del>?</del> B 07/28/24 <del>?</del> 17w 0d 140 lb 117/74 Negative <del>?</del> Negative A 145 <del>?</del> B 145 A <del>?</del> B <del>?</del> A <del>?</del> B A SM- no vb lof good fm rectus muscle diasthesis noted and PT referral <del>?</del> B 08/25/24 <del>?</del> 21w 0d 148 lb 120/77 Negative <del>?</del> Negative A 140 <del>?</del> B 148 A <del>?</del> B <del>?</del> A <del>?</del> B A SM- n ovb lof good fm n oregular ctx <del>?</del> B 09/20/24 <del>?</del> 24w 5d 159 lb 2 oz 118/78 Negative <del>?</del> Negative A 136 <del>?</del> B 138 A Cephalic <del>?</del> B Breech <del>?</del> A <del>?</del> B A JV- pt complains of severe indigestion. will start carafate + pepcid bid. plans to stop working Nov 13. no other complaints today <del>?</del> B 10/06/24 <del>?</del> 27w 0d 160 lb 2 oz 109/71 Negative <del>?</del> Negative A 147 <del>?</del> B 153 A Cephalic <del>?</del> B Transverse <del>?</del> A <del>?</del> B A JV- no lof, vaginal bleeding, or dec fm. she is still unsure who is moving when but she mostly feels movements in middle/top/right of abdomen. has growth scan with mfm on 10/16/24. <del>?</del> B 10/27/24 <del>?</del> 30w 0d 169 lb 2 oz 107/66 Negative <del>?</del> Negative A 150 <del>?</del> B 135 A Cephalic <del>?</del> B Cephalic <del>?</del> A <del>?</del> B A SM- no vb lof good fm nor egular ctx tdap today <del>?</del> B 11/03/24 <del>?</del> 31w 0d 171 lb 100/60 Negative <del>?</del> Negative A 131 <del>?</del> B 126 A Cephalic <del>?</del> B Cephalic <del>?</del> A <del>?</del> B A JV- no complaints today. will work one more week and take leave. brought in FMLA papers. Has one more iron infusion. <del>?</del> B 11/16/24 <del>?</del> 32w 6d 175 lb 8 oz 115/72 Negative <del>?</del> Negative A 120 <del>?</del> B 124 A Cephalic <del>?</del> B Cephalic <del>?</del> A <del>?</del> B A JV- most recent growth scan from 11/14 reviewed and is normal. plan 38 week delivery. NSTs starting 36 weeks on l&D <del>?</del> B 12/01/24 <del>?</del> 35w 0d 178 lb 2 oz 112/73 Negative <del>?</del> Negative A 131 <del>?</del> B 128 A Cephalic <del>?</del> B Cephalic 0.5 <del>?</del> 70 A -2 <del>?</del> B A JV- gbs collected today. we discussed colostrum collection and labor precautions. plan IOL at 38 weeks if no labor by then. <del>?</del> B ROS Constitutional Constitutional: Reports systems reviewed and no addt'l complaints, except as documented Gastrointestinal Gastrointestinal: Denies bloating, constipation, cramping, diarrhea, nausea or vomiting Genitourinary Genitourinary: Reports other Details: Denies vaginal odor, vaginal bleeding, or vaginal discharge ; Denies difficulty urinating or flank pain NST FHR Rate Baby A Baseline: 150 Variability:: Moderate Accelerations:: 15 x 15 Decelerations:: None NST Reactive:: Yes FHR Category:: Category I FHR Rate Baby B Baseline: 125 Variability:: Moderate Accelerations:: 15 x 15 Decelerations:: None NST Reactive:: Yes Uterine Activity:: occasional contractions Assessment & Plan (1) Anemia affecting : (2) Rectus diastasis: COMMENT: PT consult (3) Dichorionic diamniotic twin gestation: COMMENT: weekly NSTs at 36 weeks and growth q4 weeks. Confirmed by MFM 05/30/24, Monozygotic identical twins from NIPT (4) Supervision of high-risk : COMMENT: PRR , MANDI 3/14, girls- : Cheo (5) ADHD: COMMENT: Stopped Adderall with + test (6) : QUALIFIERS: Weeks of gestation: 31 weeks Qualified Code(s): Z3A.31 - 31 weeks gestation of COMMENT: NIPT low risk. carrier negative. 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 normal anatomy (7) False labor before 37 completed weeks of gestation: PLAN: Plan ROM plus was negative and patient only noted the one spot on her underwear. ok to dc to home .nst's x 2 reactive Charges/Coding Multi Select Codes Urinary/Genital Urinary/Genital CPT Codes: 84287-55 non-stress test Interp
== END 2024-12-03 12:04 | disposition home or self-care (01) ==
LOC: OBT 11:09 → WP 11:10
PROVIDERS: PCP Family Medicine; Referring Provider Obstetrics & Gynecology; Visit Provider Obstetrics & Gynecology
DX: O47.03 False labor before 37 completed weeks of gestation, third trimester (principal); O30.043 Twin pregnancy, dichorionic/diamniotic, third trimester; O99.013 Anemia complicating pregnancy, third trimester; D50.9 Iron deficiency anemia, unspecified; O99.891 Other specified diseases and conditions complicating pregnancy; M62.08 Separation of muscle (nontraumatic), other site; O99.343 Other mental disorders complicating pregnancy, third trimester; F90.9 Attention-deficit hyperactivity disorder, unspecified type; O09.93 Supervision of high risk pregnancy, unspecified, third trimester; Z3A.35 35 weeks gestation of pregnancy
CPT/HCPCS: 59025; 59050; 84112; 99221; G0378

== ENCOUNTER 2024-12-11 13:55 | Outpatient (CLI) | payer OTHER, SELFPAY ==
[2024-12-11 14:20] VITALS: BP 116/62; PULSE 87; PULSE 92; RESP 16; TEMP 36.5; O2SAT 98
[2024-12-11 14:24] VITALS: BMI 31.5
--- NOTE | 2024-12-11 15:24 | US_ITS ---
EXAM: BIOPHYSICAL PROF W/O NON STRES CLINICAL HISTORY: Twins baby not as reactive COMPARISON: None TECHNIQUE: A limited obstetrical ultrasound was performed to determine biophysical profile score. FINDINGS: Twin Baby B: Breathing movement: 2 Gross Body movement: 2 Tone: 2 Qualitative Amniotic Fluid: 2 MVP: : 4.6 mm Fetus is in cephalic presentation with a heart rate of 137 BPM. Cervix is obscured by the fetus. Placenta location: Posterior, not low lying Twin Baby B: Breathing movement: 2 Gross Body movement: 2 Tone: 2 Qualitative Amniotic Fluid: 2 MVP: 3.8 cm Fetus is in cephalic presentation with a heart rate of 132 BPM. Cervix is obscured by the fetus. Placenta location: Anterior, not low lying US/Biophysical Prof W/O Non Stres IMPRESSION: Biophysical Profile Score of 8 out of a possible 8, for twin A and twin B.. Reading Location: [facility]
--- NOTE | 2024-12-11 16:50 | OB.TRI.PN ---
Progress Notes Date of Service: 12/11/24 Progress Note: Patient presents for triage evaluation secondary to NST for twin gestation at 36.3 weeks FHT: Twin A 140 Moderate variability reactive no decelerations category I tracing Twin B 120 Moderate variability reactive no decelerations category I tracing [place]: mild Contractions Assessment and plan: BPP 06/01 for both twins, Reactive NST, reassuring maternal and status patient discharged to home to follow-up in office as scheduled. See problem list details for additional plan information. Charges/Coding Multi Select Codes Urinary/Genital Urinary/Genital CPT Codes: 91656-12 non-stress test Interp Assessment & Plan (1) False labor before 37 completed weeks of gestation: (2) Anemia affecting : (3) Rectus diastasis: COMMENT: PT consult (4) Dichorionic diamniotic twin gestation: COMMENT: weekly NSTs at 36 weeks and growth q4 weeks. Confirmed by MFM 05/30/24, Monozygotic identical twins from NIPT (5) Supervision of high-risk : COMMENT: PRR , MANDI 01/05, girls- : Cheo (6) ADHD: COMMENT: Stopped Adderall with + test (7) : QUALIFIERS: Weeks of gestation: 35 weeks Qualified Code(s): Z3A.35 - 35 weeks gestation of COMMENT: Neg GBS. NIPT low risk. carrier negative. 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 normal anatomy
== END 2024-12-11 16:05 | disposition home or self-care (01) ==
LOC: WPOUT 14:03 → WP 14:03
PROVIDERS: PCP Family Medicine; Referring Provider Advanced Practice Midwife; Visit Provider Advanced Practice Midwife
DX: O47.03 False labor before 37 completed weeks of gestation, third trimester (principal); O30.043 Twin pregnancy, dichorionic/diamniotic, third trimester; O99.013 Anemia complicating pregnancy, third trimester; O99.891 Other specified diseases and conditions complicating pregnancy; M62.08 Separation of muscle (nontraumatic), other site; O09.93 Supervision of high risk pregnancy, unspecified, third trimester; O99.343 Other mental disorders complicating pregnancy, third trimester; F90.9 Attention-deficit hyperactivity disorder, unspecified type; Z3A.36 36 weeks gestation of pregnancy
CPT/HCPCS: 59025; 59050; 76819; 99221; G0378

== ENCOUNTER 2024-12-19 12:52 | Outpatient (CLI) | payer OTHER, SELFPAY ==
[2024-12-19 13:10] VITALS: RESP 16; TEMP 37
[2024-12-19 13:11] VITALS: BP 120/69; PULSE 83
--- NOTE | 2024-12-19 14:33 | OB.TRI.PN ---
Progress Notes Date of Service: 12/19/24 Progress Note: Patient presents for triage evaluation secondary to twins FHT: A 130 Moderate variability reactive no decelerations category I tracing B 120 Moderate variability reactive no decelerations category I tracing [place]: n oregular Contractions Assessment and plan: di di twins 37 weeks Reactive NST, reassuring maternal and status patient discharged to home to follow-up [id number]. See problem list details for additional plan information. Charges/Coding Procedures Urinary/Genital [id number]: 81931-32 non-stress test Interp
== END 2024-12-19 14:39 | disposition home or self-care (01) ==
LOC: WPOUT 12:57 → WP 12:58
PROVIDERS: PCP Family Medicine; Referring Provider Obstetrics & Gynecology; Visit Provider Obstetrics & Gynecology
DX: O30.043 Twin pregnancy, dichorionic/diamniotic, third trimester (principal); Z3A.37 37 weeks gestation of pregnancy
CPT/HCPCS: 59025; 59050; 99221; G0378

== ENCOUNTER 2024-12-20 13:00 | Outpatient (RCR) | payer OTHER, SELFPAY ==
--- NOTE | 2024-09-29 14:58 | HP.PTEVAL ---
Patient's Visit Information Visit Information Visit Information: PAOLO LAGOS is a 28 year old F referred to Physical Therapy by Dr. Gaby Smith MD with a diagnosis of DIASTASIS RECTI. Date of Evaluation: 09/07/24 Physical Therapist: Denia Teran, PT, Cert MDT Visit Plan Frequency: 2x /Week Duration: 2-4 Months Plan: *Kitchen sink with Thierno *STEPS AQUATIC THERAPY FOR CORE STRENGTHENING AND LE STRETCHING AND STRENGTHENING WITH DIASTASIS RECTI CROSS HAND APPROXIMATION. 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 PLANNING TO DECREASE TO PART-TIME DAYS IN OCT 2024. Present symptoms: CURRENTLY 23 WKS . ABDOMINAL SEPERATION. LOW BACK PAIN AND MIDDLE BACK PAIN Present since: LOW BACK PAIN STARTED IN HIGH SCHOOL intermittently. Middle back pain started about 3 wks ago. Noticed abd separation starting mid -jun. Pain Scale: WORST 7/10, LEAST 0/10 Currently: 3/10 Is it getting better, worse or staying the same: GETTING WORSE Commenced as a result of: Worse: PROLONGED SITTING, SITTING ON THE FLOOR, RISING FROM THE FLOOR, PROLONGED STANDING, PROLONGED WALKING. WEARING HEELS. Better: CHANGE OF POSITION, LYING DOWN. SITTING ON CUSHION. USING CUSHION IN LOW BACK. Disturbed sleep: intermittently. Previous history/Previous treatment: PT AND MASSAGE FOR LOW BACK PAIN. NO DIASTASIS RECTI TREATMENT. Treatment this episode: BELT Coughing/sneezing/straining: NEGATIVE FOR INCREASED PAIN Gait: TIME AND DISTANCE LIMITED BY PAIN. NOT USING ANY ASSISTIVE DEVICES. Bowel or Bladder Dysfunction: NO. Accidents: NO Unexplained weight loss: GAINING EXPECTED. Imaging: NO PMH/Recent major surgery: UNREMARKABLE. Pain BACK: Pain Intensity (Out of 10): 3 Pain Intensity Range: 0 and 7 Objective Objective: Sitting/Standing Posture: ANTERIOR PELVIC TILT. NO RELEVANT LATERAL SHIFT. Active Correction of posture: ABLE TO PARTIALLY CORRECT. NE. Other Observations: INDEP GAIT AND TRANSFERS. Sensory deficit: CYNDI LE LIGHT TOUCH SENSATION GROSSLY INTACT AND SYMMETRICAL ROM deficit: TIGHT CYNDI HIP TIGHTNESS ALL PLANES, CYNDI HS AND CALF TIGHTNESS. Motor deficit: 5/5 CYNDI LE'S. Reflexes: 2+ CYNDI LE'S Dural Signs: POSITIVE CYNDI LE'S. Lumbar mvmt loss: flex - MIN ext - MIN R SG - NIL L SG - NIL Core strength: FAIR. DIASTASIS RECTI - 2 FINGER WIDTH WIDE ABOVE NAVEL AND ONE FINGER WIDTH WIDE BELOW NAVEL. Palpation: Increased muscle tone B thoracic and lumbar paraspinals. Goals Goal 1:: DECREASE C/O MID AND LOW BACK PAIN BY AT LEAST 25% AND PATIENT WILL BE INDEP AT AVOIDING BACK PAIN INCREASING THROUGHOUT REMAINDER OF . Goal Time Frame: 8-12 Weeks Goal 2:: PATIENT WILL BE ABLE TO VERBALIZE PREVENTATIVE MEASURES TAUGHT TO HELP MINIMIZE AB SEPARATION DURING AND AFTER . Goal Time Frame: 2-4 Weeks Goal 3:: PATIENT WILL DEMONSTRATE PROPER EX TECHNIQUE TO APPROXIMATE ABDOMINALS DURING POOL EX'S AND HOME EX'S IN DIFFERENT POSITIONS. Goal Time Frame: 2-4 Weeks Goal 4:: PATIENT WILL CONSISTENTLY DEMONSTRATE/COMMUNICATE KNOWLEDGE OF PROPER POSTURE CONTROL AND BODY MECHANICS FOR HEALTHY BACK HABITS DURING THERAPY SESSIONS. Goal Time Frame: 6-8 Weeks Goal 5:: PATIENT WILL BE INDEP WITH LAND AND WATER EX PROGRAMS Goal Time Frame: 8-12 Weeks Goal 6:: PATIENT WILL APPROPRIATELY MANAGE CHANGES IN INTRA-ABDOMINAL PRESSURE WITH APPROPRIATE PELVIC FLOOR MUSCLE ACTIVATION AND BREATHING TECHNIQUES. Rehabilitation Potential Physical Therapy Diagnosis: THIS PATIENT PRESENTS TO PT 23 WKS WITH BACK PAIN, CORE WEAKNESS, DIASTASIS RECTI AND LE STIFFNESS. SHE IS A GOOD GOOD CANDIDATE FOR PHYSICIAL THERAPY. Rehabilitation Potential: Good Anticipated Interventions Patient/Client Instruction: Educate patient on: Condition, Plan of Care and Risk Factors For the Purpose of:: To improve self management Therapeutic Exercise to Include: Strength training, Body mechanics, Postural training, Flexibilty training, Neuromotor development, In an aquatic setting and Dynamic Lumbar Stabilization For the Purpose of:: To decrease pain, To increase ROM, To improve muscle performance and motor function, To improve ability to perform ADL's, To increase tolerance to activity/condition/position, To improve ability of physical actions for home/community/work/leisure, To improve gait and locomotor functions, To increase flexibility/ROM and To improve self management Text: Thank you for the opportunity to evaluate your patient. For Medicare and Medicare HMO plans, please review the plan of care and approve it. It will need to be FAXED BACK to us at [phone] for Medicare purposes. For Medicare only, by signing this I certify the plan of care. Please let me know if there are questions or concerns regarding this plan of care. Physician Signature: Date:
--- NOTE | 2024-11-06 15:46 | HP.PTREVAL ---
Re-Evaluation Intro: Dr. Gaby Smith MD, It has been my pleasure to treat PAOLO LAGOS over the last 14 visits for DIASTASIS RECTI. Please see the progress note below for an update on the physical therapy plan of care! Subjective Subjective: PATIENT REPORTS SHE FEELS DESPITE HER ABDOMEN SIZE INCREASING HER BACK PAIN HAS NOT BEEN INCREASING SINCE STARTING PT. SHE STATES SHE FEELS AQUATIC THERAPY AND THE HOME EX'S HAVE BEEN HELPING HER MANAGE THE PAIN AND WHEN SHE HAS PAIN GETTING IN THE POOL HELPS ALLEVIATE IT. PATIENT IS REQUESTING TO CONTINUE PT TO CONTINUE TO LEARN HOW TO MANAGE HER PAIN. PATIENT REPORTS HER OBGYN IS HAPPY SHE IS DOING AQUATIC THERAPY AND WANTS HER TO CONTINUE. Objective Objective/Function: PATIENT WAS SEEN TODAY FOR RE-ASSESSMENT OF PROGRESS TOWARD THE SET PT GOALS AND THE NEED FOR FURTHER PHYSICAL THERAPY VS READINESS FOR DISCHARGE. THIS PATIENT IS PROGRESSING IN HER WITH TWINS AND STILL HAVING BACK PAIN BUT LEARNING AQUATIC AND HOME EXERCISES TO HELP MANAGE HER PAIN HER PROGRESSES. 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 SHE IS MAKING PROGRESS TOWARD ALL PT GOALS EXCEPT FOR DECREASING PAIN WHICH IS UNDERSTANDABLE DUE TO HER ABDOMINAL SIZE INCREASING. THIS GOAL WILL BE CHANGED. SHE IS A GOOD CANDIDATE TO CONTINUE PT HER NEEDS ARE CONTINUING TO CHANGE HER PROGRESSES. UPON EXAM TODAY: Dural Signs: POSITIVE CYNDI LE'S L > R Lumbar mvmt loss: flex - MIN ext - MIN R SG - NIL L SG - NIL Core strength: FAIR. DIASTASIS RECTI - BARELY ONE FINGER WIDTH PALPABEL JUST BELOW NAVEL. OTHER: INDEP GAIT AND INDEP TRANSFER SIT TO STAND WITHOUT UE ASSIST. SHE COMMUNICATED A GOOD UNDERSTANDING OF ALL INSTRUCTIONS GIVEN AND WOULD BENEFIT FROM REINFORCEMENT AND FURTHER INSTRUCTION. Plan Plan Plan: CONTINUE AQUATIC THERAPY 2X'S A WK X 12 TO 14 VISITS TOLERATED OR UNTIL DELIVERY OR STATUS CHANGES FOR CORE STRENGTHENING AND LE STRETCHING AND STRENGTHENING WITH DIASTASIS RECTI CROSS HAND APPROXIMATION. FURTHER PELVIC FLOOR EDUCATION NEEDED TO HELP MEET SET GOALS. Balance/Gait/Functional tests Balance/Special Test Scores Oswestry Low Back Score: 21 Goals Goals Goal 1:: DECREASE C/O MID AND LOW BACK PAIN BY AT LEAST 25% - NOT MET AND PATIENT WILL BE INDEP AT AVOIDING BACK PAIN INCREASING THROUGHOUT REMAINDER OF - BEING MET Goal Time Frame: 8-12 Weeks Goal Progress: SEE ABOVE Goal 2:: PATIENT WILL BE ABLE TO VERBALIZE PREVENTATIVE MEASURES TAUGHT TO HELP MINIMIZE AB SEPARATION DURING AND AFTER . Goal Time Frame: 2-4 Weeks Goal Progress: Goal Met Goal 3:: PATIENT WILL DEMONSTRATE PROPER EX TECHNIQUE TO APPROXIMATE ABDOMINALS DURING POOL EX'S AND HOME EX'S IN DIFFERENT POSITIONS. Goal Time Frame: 2-4 Weeks Goal Progress: Goal Met Goal 4:: PATIENT WILL CONSISTENTLY DEMONSTRATE/COMMUNICATE KNOWLEDGE OF PROPER POSTURE CONTROL AND BODY MECHANICS FOR HEALTHY BACK HABITS DURING THERAPY SESSIONS. Goal Time Frame: 6-8 Weeks Goal Progress: Progressing Goal 5:: PATIENT WILL BE INDEP WITH LAND AND WATER EX PROGRAMS Goal Time Frame: 8-12 Weeks Goal Progress: Progressing Goal 6:: PATIENT WILL APPROPRIATELY MANAGE CHANGES IN INTRA-ABDOMINAL PRESSURE WITH APPROPRIATE PELVIC FLOOR MUSCLE ACTIVATION AND BREATHING TECHNIQUES. Goal Time Frame: 2-4 Weeks Goal Progress: Progressing Anticipated Interventions Anticipated Interventions Patient/Client Instruction: Educate patient on: Condition, Plan of Care and Risk Factors For the Purpose of:: To improve self management Therapeutic Exercise to Include: Strength training, Body mechanics, Postural training, Flexibilty training, Neuromotor development, In an aquatic setting and Dynamic Lumbar Stabilization For the Purpose of:: To decrease pain, To increase ROM, To improve muscle performance and motor function, To improve ability to perform ADL's, To increase tolerance to activity/condition/position, To improve ability of physical actions for home/community/work/leisure, To improve gait and locomotor functions, To increase flexibility/ROM and To improve self management Re-Evaluation Ending Re-evaluation ending: Please do not hesitate to contact me at [phone] by phone or if you have questions or concerns regarding this new plan of care! Sincerely, Denia Teran, PT, Cert MDT
== END 2024-12-20 19:00 | disposition home or self-care (01) ==
LOC: PT 13:00
PROVIDERS: PCP Family Medicine; Referring Provider Obstetrics & Gynecology; Visit Provider Obstetrics & Gynecology
DX: M62.08 Separation of muscle (nontraumatic), other site (principal)
CPT/HCPCS: 97113; 97162; 97530

== ENCOUNTER 2024-12-21 07:17 | Inpatient (IN) | payer OTHER, SELFPAY ==
[2024-12-21] VITALS (61 sets, daily range): BP systolic 97–140; BP diastolic 47–78; PULSE 78–122; RESP 14–20; TEMP 36.4–37.2; O2SAT 98–100; BMI 32.1
--- NOTE | 2024-12-21 07:41 | HP.PCM.OB_ITS ---
HPI - General General Date of Admission: 12/21/24 HPI Narrative PAOLO LAGOS, is a 29 y/o @ 37 weeks 6 days, who presents to L&D for induction of labor due to twin gestation (di/di) both babies are weighing about 6 lbs Maternal Data Information MANDI Calculator Estimated Delivery Date Method Current WG Current Estimate 01/05/25 Ultrasound #1 37w 6d # 2 PFSH PFSH Medical History Iron deficiency anemia ADHD Depression Home Medications ?Medication ?Instructions ?Recorded ?Last Taken ?Type docosahexaenoic acid 200 mg 1 mg PO DAILY 05/23/24 History capsule ( DHA) Allergy/AdvReac Type Severity Reaction Status Date / Time No Known Allergies Allergy Verified 12/21/24 07:16 Family History Grandmother Ovarian cancer, Onset Age: 80 Social History adopted: No household members: spouse current occupational status: employed 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 occupational exposures/hazards: No pets and animals: Yes pets and animals: cat(s) and dog(s) history of recent travel: Yes details: - February 2024 out of state: Yes out of country: Yes sexually active: Yes Smoking Status: Never smoker alcohol intake: current alcohol intake frequency: holidays/special occasions only details: Not while substance use type: does not use diet: vegetarian well-balanced diet: about half the time caffeine: Yes eating out: 1-3 times/week during the past year weight has: remained stable what type of physical activity do you participate in: walking and weight training frequency: 3-4 times per week duration: 30-45 minutes/day seatbelt use: always do you feel safe at home: Yes additional social history: [facility] [place] Insurance History 1 Elective abortions Hx Para 0 Spontaneous abortions Hx # Term Pregnancies Ectopic pregnancies Hx # Pregnancies Multiple births # of living children 0 Visit Details Expected Delivery Route/Plan Labor Preferences- CB/BF classes: [] labor support person: [] labor intervention preferences: [] pain management options preferred: [] cut cord/dad catch: [] : [] PP control planned: [] discussed possible routes of delivery and associated risks: [] special requests: [] Plans Covid status: [] Flu vaccine: given Tdap vaccine: given Rhogam: na LARC form signed: [] movement and labor precautions reviewed. Problem list reviewed and updated with the most current plan of care details and appropriate orders placed. Relevant counseling for the gestational age provided. Continue routine care and follow up unless otherwise noted in visit notes/problem list details OB Flowsheet Initial Weight: Not Recorded Date -?-?-?-?-?-?-?-?-?-?-?-?- EGA Weight BP Urine Prot -?-?-?-?-?-?-?-?-?-?-?-?- Glucose FHR FuHt Pres Dilation -?-?-?-?-?-?-?-?-?-?-?-?- Effaced St Visit Note 06/01/24 -?-?-?-?-?-?-?-?-?-?-?-?- 8w 6d 125 lb 4 oz 131/80 -?-?-?-?-?-?-?-?-?-?-?-?- A 175 -?-?-?-?-?--?-?-?-?-?-?-?- B 172 A -?-?-?-?-?-?-?-?-?-?-?-?- B -?-?-?-?-?-?-?-?-?-?-?-?- A -?-?-?-?-?-?-?-?-?-?-?-?- B A JV- CRL consiste nt with previously established GA from hospital ultrasound. She has already seen M and diagnosed with dichorionic diamniotic twins. 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 -?-?-?-?-?-?-?-?-?-?-?-?- B 06/30/24 -?-?-?-?-?-?-?-?-?-?-?-?- 13w 0d 133 lb 2 oz 111/71 Nega tive -?-?-?-?-?-?-?-?-?-?-?-?- Negative A 150 -?-?-?-?-?-?-?-?-?-?-?-?- B 153 A -?-?-?-?-?-?-?-?-?-?-?-?- B -?-?-?-?-?-?-?-?-?-?-?-?- A -?-?-?-?-?-?-?-?-?-?-?-?- B A JV- joanna resul ts showed monozygotic twins, they are dichorionic, diamniotic however and recommended timing of delivery is 38 weeks. She will continue to follow with MFM. Has all ultrasounds scheduled. -?-?-?-?-?-?-?-?-?-?-?-?- B 07/28/24 -?-?-?-?-?-?-?-?-?-?-?-?- 17w 0d 140 lb 117/74 Negative -?-?-?-?-?-?-?-?-?-?-?-?- Negative A 145 -?-?-?-?-?-?-?-?-?-?-?-?- B 145 A -?-?-?-?-?-?-?-?-?-?-?-?- B -?-?-?-?-?-?-?-?-?-?-?-?- A -?-?-?-?-?-?-?-?-?-?-?-?- B A SM- no vb lof go od fm rectus muscle diasthesis noted and PT referral -?-?-?-?-?-?-?-?-?-?-?-?- B 08/25/24 -?-?-?-?-?-?-?-?-?-?-?-?- 21w 0d 148 lb 120/77 Negative -?-?-?-?-?-?-?-?-?-?-?-?- Negative A 140 -?-?-?-?-?-?-?-?-?-?-?-?- B 148 A -?-?-?-?-?-?-?-?-?-?-?-?- B -?-?-?-?-?-?-?-?-?-?-?-?- A -?-?-?-?-?-?-?-?-?-?-?-?- B A SM- n ovb lof go od fm n oregular ctx -?-?-?-?-?-?-?-?-?-?-?-?- B 09/20/24 -?-?-?-?-?-?-?-?-?-?-?-?- 24w 5d 159 lb 2 oz 118/78 Nega tive -?-?-?-?-?-?-?-?-?-?-?-?- Negative A 136 -?-?-?-?-?-?-?-?-?-?-?-?- B 138 A Cephalic -?-?-?-?-?-?-?-?-?-?-?-?- B Breech -?-?-?-?-?--?-?-?-?-?-?-?- A -?-?-?-?-?-?-?-?-?-?-?-?- B A JV- pt complains of severe indigestion. will start carafate + pepcid bid. plans to stop working Nov 13. no other complaints today -?-?-?-?-?-?-?-?-?-?-?-?- B 10/06/24 -?-?-?-?-?-?-?-?-?-?-?-?- w 0d 160 lb 2 oz 109/71 Nega tive -?-?-?-?-?-?-?-?-?-?-?-?- Negative A 147 -?-?-?-?-?-?-?-?-?-?-?-?- B 153 A Cephalic -?-?-?-?-?-?-?-?-?-?-?-?- B Transverse -?-?-?-?-?-?-?-?-?-?-?-?- A -?-?-?-?-?-?-?-?-?-?-?-?- B A JV- no lof, vagi nal bleeding, or dec fm. she is still unsure who is moving when but she mostly feels movements in middle/top/right of abdomen. has growth scan with mfm on 10/16/24. -?-?-?-?-?-?-?-?-?-?-?-?- B 10/27/24 -?-?-?-?-?-?-?-?-?-?-?-?- 30w 0d 169 lb 2 oz 107/66 Nega tive -?-?-?-?-?-?-?-?-?-?-?-?- Negative A 150 -?-?-?-?-?-?-?-?-?-?-?-?- B 135 A Cephalic -?-?-?-?-?-?-?-?-?-?-?-?- B Cephalic -?-?-?-?-?-?-?-?-?-?-?-?- A -?-?-?-?-?-?-?-?-?-?-?-?- B A SM- no vb lof go od fm nor egular ctx tdap today -?-?-?-?-?-?-?-?-?-?-?-?- B 11/03/24 -?-?-?-?-?-?-?-?-?-?-?-?- 31w 0d 171 lb 100/60 Negative -?-?-?-?-?-?-?--?-?-?-?-?- Negative A 131 -?-?-?-?-?-?-?-?-?-?-?-?- B 126 A Cephalic -?-?-?-?-?-?-?-?-?-?-?-?- B Cephalic -?-?-?-?-?-?-?-?-?-?-?-?- A -?-?-?-?-?-?-?-?-?-?-?-?- B A JV- no complaint s today. will work one more week and take leave. brought in FMLA papers. Has one more iron infusion. -?-?-?-?-?-?-?-?-?-?-?-?- B 11/16/24 -?-?-?-?-?-?-?-?-?-?-?-?- 32w 6d 175 lb 8 oz 115/72 Nega tive -?-?-?-?-?-?-?-?-?-?-?-?- Negative A 120 -?-?-?-?-?-?-?-?-?-?-?-?- B 124 A Cephalic -?-?-?-?-?-?-?-?-?-?-?-?- B Cephalic -?-?-?-?-?-?-?-?-?-?-?-?- A -?-?-?-?-?-?-?-?-?-?-?-?- B A JV- most recent growth scan from 11/14 reviewed and is normal. plan 38 week delivery. NSTs starting 36 weeks on l&D -?-?-?-?-?-?-?-?-?-?-?-?- B 12/01/24 -?-?-?-?-?-?-?-?-?-?-?-?- 35w 0d 178 lb 2 oz 112/73 Nega tive -?-?-?-?-?-?-?-?-?-?-?-?- Negative A 131 -?-?-?-?-?-?-?-?-?-?-?-?- B 128 A Cephalic -?-?-?-?-?-?-?-?-?-?-?-?- B Cephalic 0.5 -?-?-?-?-?-?-?-?-?-?-?-?- 70 A -2 -?-?-?-?-?-?-?-?-?-?-?-?- B A JV- gbs collecte d today. we discussed colostrum collection and labor precautions. plan IOL at 38 weeks if no labor by then. -?-?-?-?-?-?-?-?-?-?-?-?- B 12/06/24 -?-?-?-?-?-?-?-?-?-?-?-?- 35w 5d 180 lb 4 oz 113/71 Nega tive -?-?-?-?-?-?-?-?-?-?-?-?- Negative A 130 -?-?-?-?-?-?-?-?-?-?-?-?- B 140 A Cephalic -?-?-?-?-?-?-?-?-?-?-?-?- B Cephalic -?-?-?-?-?-?-?-?-?-?-?-?- A -?-?-?-?-?-?-?--?-?-?-?-?- B A SM- no vb lof go od fm nor egualr ctix -?-?-?-?-?-?-?-?-?-?-?-?- B 12/15/24 -?-?-?-?-?-?-?-?-?-?-?-?- 37w 0d 182 lb 102/69 Negative -?-?-?-?-?-?-?-?-?-?-?-?- Negative A 125 -?-?-?-?-?-?-?-?-?-?-?-?- B 130 A Cephalic -?-?-?-?-?-?-?-?-?-?-?-?- B Cephalic 1.5 -?-?-?-?-?-?-?-?-?-?-?--?- A -?-?-?-?-?-?-?-?-?-?-?-?- B A SM- no vb lof go od fm no regular ctx -?-?-?-?-?-?-?-?-?-?-?-?- B 12/18/24 -?-?-?-?-?-?-?-?-?-?-?-?- 37w 3d 184 lb 2 oz 126/88 Nega tive -?-?-?-?-?-?-?-?-?-?-?-?- Negative A 126 -?-?-?-?-?-?-?-?-?-?-?-?- B 144 A Cephalic -?-?-?-?-?-?-?-?-?-?-?-?- B Cephalic 2 -?-?-?-?-?-?-?-?-?-?-?-?- 70 A -2 -?-?-?-?-?-?-?-?-?-?-?-?- B A JV- no lof, vagi nal bleeding, or dec fm. setting up IOL prior to the weekend for safety reasons. -?-?-?-?-?-?-?-?-?-?-?-?- B NST FHR Rate Baby A Baseline: 140 Variability:: Moderate Accelerations:: 15 x 15 Decelerations:: None NST Reactive:: Yes FHR Rate Baby B Baseline: 130 Variability:: Moderate Decelerations:: None FHR Category:: Category I Uterine Activity:: no contractions at this time. ROS Constitutional Constitutional: Denies change in weight, fatigue, fever(s), headache(s), poor appetite or weakness Eyes Eyes: Denies blurry vision, change in vision, seeing flashes or spots in vision ENT HEENT: Denies dizziness, headache(s), loss taste/smell or sore throat Cardiovascular Cardiovascular: Denies chest pain, dizziness, dyspnea, irregular heart rhythm, leg edema, palpitations, rapid heart rate or vomiting Respiratory/Chest Respiratory/Chest: Denies chest tightness, cough, dyspnea or breast pain Gastrointestinal Gastrointestinal: Denies abdominal pain, anorexia, constipation, cramping, diarrhea, hemorrhoids, vomiting or weight changes Genitourinary Genitourinary: Denies dysuria, flank pain, genital lesions, genital pain, urinary frequency or urinary urgency Musculoskeletal Musculoskeletal: Denies back pain, difficulty walking, joint pain, limited range of motion, muscle cramps or numbness Integumentary Integumentary: Denies lesions or unusual bruising Neurologic Neurologic: Denies abnormal movements, abnormal speech, dizziness, numbness, seizure-like activity or syncope Psychiatric Psychiatric: Denies anxiety, behavioral changes, change in appetite, change in libido, cognitive impairment, confusion, depression, difficulty concentrating, hallucinations or suicidal thoughts Endocrine Endocrinology: Denies excessive sweating, polydipsia or polyuria Hematologic/Lymphatic Hematologic/Lymphatic: Denies easy bleeding, easy bruising or lymphadenopathy Allergic/Immunologic Allergic/Immunologic: Denies itchy eyes, lip swelling, seasonal rhinorrhea, rhinitis, throat swelling, tongue swelling, eczemia, wheezing or asthma Vital Signs Vital Signs Vital Signs: Weight Weight: 187 lb Body Mass Index (BMI) 32.1 Physical Exam Const alert, oriented x3, no apparent distress and healthy appearing General Appearance: cooperative; Negative for anxious HEENT normocephalic Face and Sinus: normal facial exam Eyes EOMs intact bilaterally and no scleral icterus General Eye: normal appearance of both eyes Neck full ROM and supple Lymph Lymphatic: no lymphadenopathy noted Chest Chest: abnormal inspection of the chest Resp normal respiratory effort Effort and Inspection: able to speak in complete sentences Cardio regular rate GI soft to palpation and non-tender Inspection: gravid Palpation: soft; Negative for tender external exam normal Narrative: cx is 3/70/-2 Amniotic Fluid: ROM+plus Back/Spine no CVA tenderness Extremity normal to inspection, full ROM and no clubbing, cyanosis or edema General Extremity: Negative for calf tenderness or edema Skin Lesions: no lesions Rashes: no rashes Psych mental status grossly normal Labs Labs Labs: Blood Type A POSITIVE Antibody Screen NEGATIVE Hct 29.5 % (37-47) L Hgb 8.9 g/dL (12.0-15.0) L Obstetrics Ultrasound Syphilis Total Ab Non-reactive VZV IgG Antibody 1228 index (Immune >165) Rubella IgG Antibody Reactive (Nonreactive) Hep Bs Antigen Non-Reactive (Nonreactive) Hepatitis C Antibody Non-Reactive (Nonreactive) Chlamydia DNA (BREN[place]) Negative (Negative) N.gonorrhoeae DNA ([place]) Negative (Negative) HIV 1&2 Antibody Non-Reactive (Nonreactive) Glucose 1 Hr 50 gm 70 mg/dL (70-140) Assessment & Plan (1) Anemia affecting : (2) Rectus diastasis: COMMENT: PT consult (3) Dichorionic diamniotic twin gestation: COMMENT: weekly NSTs at 36 weeks and growth q4 weeks. Confirmed by MFM 05/30/24, Monozygotic identical twins from NIPT (4) Supervision of high-risk : COMMENT: PRR , MANDI 01/05, girls- : Cheo (5) ADHD: COMMENT: Stopped Adderall with + test (6) : QUALIFIERS: Weeks of gestation: 37 weeks Qualified Code(s): Z3A.37 - 37 weeks gestation of COMMENT: Neg GBS. NIPT low risk. carrier negative. 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 normal anatomy PLAN: Plan Patient presents IOL, plan management for with pitocin/AROM. Pain management: plans epidural. GBS negative. Management of any complications: none I have reviewed the [facility] and made any clinically relevant updates.
[2024-12-21] MEDS: Lactated Ringers 1,000 ML 50 ML IV ×2 (07:45→16:27)
[2024-12-21 08:01] LABS: Absolute Lymphocyte Count 2.21 X10^3/uL (0.83-4.51); Absolute Neutrophil Count 8.7 X10^3/uL (2.0-7.7); Basophil# 0.11 X10^3/uL; Basophil% 0.9 % (0-1); Eosinophil# 0.22 X10^3/uL; Eosinophils% 1.8 % (0-5); Hematocrit 34.9 % (37-47); Hemoglobin 10.8 g/dL (12.0-15.0); Lymphocyte # 2.21 X10^3/ul (0.83-4.51); Lymphocyte % 17.9 % (19-41); Mean Corp Hgb Conc 30.9 g/dL (32-36); Mean Corpuscular Hgb 24.5 pg (27.0-32.0); Mean Corpuscular Volume 79.1 fL (81-99); Monocyte# 0.83 X10^3/uL; Monocyte% 6.7 % (0-10); NRBC Flagged by Analyzer 0 % (0-5); Neutrophil # 8.65 X10^3/uL (2.7-7.7); Neutrophil % 70.2 % (47-70); Platelet Count 151 K/mm3 (150-450); RBC Distribution Width CV 19.6 % (11.6-14.6); RBC Distribution Width SD 55.9 fl (35.1-43.9); Red Blood Count 4.41 M/mm3 (4.2-5.4); White Blood Count 12.3 K/mm3 (4.4-11.0)
[2024-12-21 08:40] LABS: Syphilis Antibodies Nonreactive (Nonreactive)
[2024-12-21] MEDS: Oxytocin 15 Units/NS 250ml 15 UNITS/250 ML IV.SOLN 2 UNITS IV (09:00)
--- NOTE | 2024-12-21 13:10 | PN_ITS ---
Progress Note patient is sitting up in bed without complaints. she consents to AROM and internal monitor placement current tracing: FHT: A: 140 Moderate variability reactive no decelerations category I tracing, B:130's moderate variability + accels, no decels [place]: q 2-3 min Contractions cx: 3/70/-2, membranes ruptured with clear fluid return. FSE placed. reviewed tracing abnormalities since last note: no changes A/P: continue pitocin Epidural prn.
[2024-12-21] MEDS: Lactated Ringers 1,000 ML 999 ML IV (17:25)
[2024-12-21] MEDS: fentaNYL-bupivacaine (epidural) 100 ML BAG EPIDURAL ×2 (18:18→23:14)
--- NOTE | 2024-12-21 19:16 | PN_ITS ---
Progress Note patient is laying on left side and just got her epidural. current tracing: FHT: A: 140's Moderate variability reactive, occasional variable decelerations, overall category I tracing; B: 130: moderate variability + accels, cat 1 [place]: q1-5 min Contractions cx: 4.5/80/-1 some caput on baby a head reviewed tracing abnormalities since last note: no change A/P: continue pitocin. dysfunctional uterine contraction pattern currently. ok to increase pitocin to 25 and if needed will half this, wit 30 minutes and restart. currently at 16 mu /min
[2024-12-21] MEDS: Lactated Ringers 1,000 ML 200 ML IV (23:15)
[2024-12-22] VITALS (18 sets, daily range): BP systolic 94–142; BP diastolic 54–115; PULSE 79–118; RESP 12–34; TEMP 36.2–37.1; O2SAT 94–100
[2024-12-22] MEDS: DiphenhydrAMINE 50 MG/ML Syringe IV (00:35)
--- NOTE | 2024-12-22 02:00 | PLAC_PTH ---
PATIENT: PAOLO LAGOS LOC: [facility] U#:[id number] AGE/SX: ROOM: WP007 RE12/21/[address]: Dr. Dilia Hope DO : 1995 BED: 1 DIS: 12/24/2024 SPEC #: [id number] RECD: 12/22/24 05:07 STATUS: TAMIR LINDSAY #: [id number] DORI: 12/22/24 02:[address]: Dilia Hope DEPT: SURGICAL PATHOLOGY RECD BY: Delia Lee ENTERED: 12/22/24 08:46 SP TYPE: PLACENTA OTHR DR: Dr. Kenneth Dave MD Tissues: Placenta, NOS Procedures: Surgery Specimen Level V HEADER OPERATION: Delivery PRE-OP DIAGNOSIS: RADHA twins TISSUE SUBMITTED: A- Placenta MICROSCOPIC DIAGNOSIS A. Twin placenta: * Dichorionic diamniotic twin placenta 860 grams, formalin fixed weight Placenta A (longer umbilical cord): Mature third trimester placenta Three vessel umbilical cord with false knot membranes without active inflammation Placenta B: (shorter umbilical cord): Matures third trimester placenta with focal subchorionic fibrin and focal microcalcifications Three vessel umbilical cord membranes without active inflammation MICROSCOPIC DESCRIPTION Slides are reviewed. GROSS DESCRIPTION SPECIMEN: TWIN PLACENTA / CLINICAL INFORMATION: A. Weight: A - 2.575 kg; B - 2.445 kg B. Gestational Age: 38 weeks C. Sex: A- Female, B- Female PLACENTAL WEIGHT (POST FIXATION): 860g PLACENTAL DIMENSIONS: 35.2 x 17.1 x 3.3 cm, longer umbilical cord disc 26.0 x 15.0, shorter umbilical cord disc 17.1 x 8.2 cm PLACENTAL SHAPE: Bilobed joined by thin portion of placenta measuring 5.0 x 4.5 x 0.3 cm PLACENTAL WEIGHT FOR GESTATIONAL AGE: PLACENTA longer umbilical cord: MEMBRANES - Present A. Insertion: Marginal B. Site of rupture from edge: 15.2 cm from edge of placental disc C. Color of membrane: Toscano-friedman D. Abnormalities: None UMBILICAL CORD - Present A. Color: Toscano-friedman B. Insertion: Central C. Length: 27.1 cm D. Diameter: 1.9 cm E. Number of vessels: Three F. Abnormalities: False knot with unremarkable cut surface PLACENTA shorter umbilical cord: MEMBRANES - Present A. Insertion: Marginal B. Site of rupture from edge: 10.6 cm from edge of placental disc C. Color of membrane: Toscano-friedman D. Abnormalities: None UMBILICAL CORD - Present A. Color: Toscano-friedman B. Insertion: The eccentric 5.5 cm from closest disc edge C. Length: 10.2 cm D. Diameter: 1.2 cm E. Number of vessels: Three F. Abnormalities: None PLACENTAL DISC - Present A. Color of surface: Toscano-friedman with well distributed normal caliber vessels. One focus of subchorionic fibrin of twin with shorter segment of umbilical cord involving less than 5% of surface B. surface abnormalities: None. No superficial vascular anastomosis seen C. Maternal cotyledons: Intact normally lobulated cotyledons along the surface of the disc with the longer segment of umbilical cord. Normally lobulated focally disrupted focally not complete cotyledons with a minimal amount of loose adherent blood clot on the surface of the disc with the shorter segment of umbilical cord D. Attached retro placental clot: Minimal E. Cut surface: Dark red and spongy F. Lesions: None G. Separate clot: Absent SECTIONS SUBMITTED: Ten cassettes 1-longer umbilical cord twin with one membrane roll and two umbilical cord cross-sections 2-longer umbilical cord twin false knot cross-section and a section of disc full-thickness 3-4- longer umbilical cord disc full-thickness sections 5-dividing membrane roll6-shorter umbilical cord twin membrane roll and two umbilical cord cross-sections 7-shorter umbilical cord twin surface -85-qoqspky umbilical cord twin full-thickness sections Raz 12/25/2024 TC: CPT: 16801 x2
[2024-12-22] MEDS: Methylergonovine 0.2 MG/ML Ampul IM (02:06)
[2024-12-22] MEDS: Cefazolin 2 GM in Syringe IV (02:30)
--- NOTE | 2024-12-22 02:54 | RAD_ITS ---
PROCEDURE: ABDOMEN SINGLE VIEW (PORTABLE) REASON FOR EXAM: Status surgery, no count TECHNIQUE: 2 portable supine views to include the entire abdomen and pelvis COMPARISON: None FINDINGS: No radiopaque foreign body identified. Visualized lung bases appear clear. RAD/Abdomen Single View (Portable) IMPRESSION: No radiopaque foreign body identified.. Reading Location: [id number]
[2024-12-22] MEDS: Azithromycin 500 MG in 0.9% Normal Saline (250mL Bag) 250 ML 255 MG IV (03:00)
--- NOTE | 2024-12-22 03:07 | EX.PCM.OBRPT ---
Maternal Data Information MANDI Calculator Estimated Delivery Date Method Current WG Current Estimate 01/05/25 Ultrasound #1 38w 0d # 2 Final MANDI: 01/05/25 Final MANDI Source: US <20 weeks Gestational age: 38 weeks 0 days Operative Report (OB) Cecarean Details Procedure Type: low transverse Date of Procedure: 12/22/24 Procedure Start Time: 01:58 Procedure Stop Time: 02:40 Time of Delivery: 02:00 Pre-Operative Diagnosis: Malpresentation and Other (Di/Di twin gestation at 38 weeks, baby B malpresentation ) Other Pre-Operative diagnosis: none Post-Operative Diagnosis: Same as Pre-operative diagnosis Classification: Stat Type of Anesthesia: Epidural and General Antibiotic Given: Ancef 2 grams IV x1 and Zithromax 500 mg/5 mL X1 Drain: Veronica to straight drain Estimated Blood Loss: 1000cc Findings Description of surgery: Patient began pushing in the operating room and delivered baby A head in the MULU presentation at 0143 The head was delivered atraumatically. The anterior and posterior shoulders delivered without complication followed by the rest of the infant and the was placed on the maternal abdomen. Delayed cord clamping was employed for approximately 30 seconds. Baby B's head was noted to be very high in the pelvis, the left and not engaged on he cervix. There were limbs palpated. Attempt was made to internally convert the head to a vertex presentation. This was performed using both fundal pressure and internal manipulation. During this time the membranes ruptured incidentally and both feet and hands were palpated. The head became dislodged higher in the pelvis and the placental edge was starting to protrude into the vagina. The heart tones were difficult to find on ultrasound and the FSE was not sticking to the head due to loss of station. The decision was made to proceed with an emergent section of twin B at 0151. The patient was transferred to the operating table and a splash of Betadine at 0155 was performed. Veronica catheter was noted to be in place and draining well. Spite having an epidural the patient felt an Allis clamp pinch of her abdomen. The patient was dosed again by anesthesia but still did not feel relief. The decision was made to proceed with general anesthesia. A Pfannenstiel skin incision was made with the scalpel and carried through to the underlying layer of fascia with the scalpel. Fascia was was also incised with the scalpel. The rectus bellies were with out complication bluntly. The peritoneum was entered digitally. The incision was stretched and a low transverse uterine incision was made with the scalpel. The infant's feet were first presenting and were grasped and delivered through the uterine incision. The torso was then delivered followed by the anterior shoulder. The was turned in the posterior arm was also delivered with the help of my housekeeping assistant and fundal pressure the head delivered spontaneously.. The cord was clamped and cut and the was handed off to awaiting nurse. The placenta was delivered spontaneously immediately following and was noted to be intact and have a three-vessel cord. The uterus was exteriorized cleared of all clots and debris, and the incision was closed in a double layer closure using #1 Vicryl the ovaries and fallopian tubes were noted to be within normal limits. The uterus was returned to the maternal abdomen and gutters were cleared of all clots and debris. The peritoneum was closed with 3-0 Monocryl in a running fashion. Gloves were changed prior to fascial closure. Fascia was closed with 0 PDS in a running fashion. Subcutaneous tissue was copiously irrigated and the skin was closed with 3-0 Monocryl in a subcuticular fashion. Mepilex dressing was applied without complication. Patient was taken to recovery in stable condition. A first-degree vaginal laceration was also repaired then after the procedure with a 3-0 and 2-0 Vicryl. A right labial tear was also repaired with a 3-0 Vicryl. An x-ray was performed and found to be free of all sponges laps and needles. Surgical findings: Viable twin females, normal placenta normal uterus. Presentation: Vertex Amniotic Membrane Rupture Type: Artificial Amniotic Fluid Description: Clear Placental Delivery Description: Manual Removal Placenta Disposition: [facility] Specimen collected: Yes Description of specimen(s) removed: Placenta Cord Vessel Description: 3 Vessels Cord Entanglement: None Infant A gender: Female (1 minute): 8 (5 minute): 9 Delayed Cord Clamping: Yes Stock Chaser manager residential: Yes Extension Work Instructor: Vijay Chauhan Tasks completed by medical receptionist assistant: Closing and Retracting Additional housekeeping assistant?: No Complications Complications: No Baby B Information Presentation: [place] Breech Operative Information Mode of Delivery: Cord Vessel Description: 3 Vessels Cord Entanglement: None B gender: Female (1 minute): 7 (5 minute): 9 Delayed Cord Clamping: Yes Multi Select Codes Urinary/Genital Urinary/Genital CPT Codes: 77769 [place]ag[place] [id number] Delivery global pkg
[2024-12-22] MEDS: Oxytocin 15 Units/NS 250ml 15 UNITS/250 ML IV.SOLN 83 UNITS IV (03:15)
--- NOTE | 2024-12-22 03:24 | DCINST_ITS ---
Discharge Instructions Diet Discharge Diet: No restrictions DC O2, CPAP, BIPAP needs Home O2 Discharge instructions: No Dressing / Incision Discharge Activity: May Not Drive (for 2 weeks or while taking narcotic pain medications.), May Shower and May Take a Tub Bath (in 7 days.) May resume sexual activity in: 4-6 weeks Weight Bearing Status: Full weight bearing Lifting Restrictions: 20 pounds Dressing / Incision Call your doctor if your incision/area has: Continuous Slow Oozing, Sudden Increased Bleeding, Increased Pain/ Swelling, Increased Redness and Foul Smelling Discharge Call your doctor if you observe: Fever of 101 or Higher and Using more than 1 pad per hour Suture Line Care: Avoid Pulling/Pushing and Avoid Pinching/Bending Cleanse incision/area with: Soap & Water and Keep Dressing Clean & Dry Follow Up Care Please Follow Up With: Dilia Hope DO When: Call [phone] to make an appointment for an incision check in 1-2 weeks. Test Results: Test results from this visit will be discussed in further detail at your follow- up appointment, if applicable. Discharge Plan Admission Admit Date/Time: 12/21/24 07:17 Attending Provider: Dilia Hope Primary Care Provider: Kenneth Dave Discharge Orders/Prescriptions Prescriptions: No Action DHA 200 mg capsule 1 mg PO DAILY Referrals / Follow Up: Kenneth Dave MD [Primary Care Provider] -
[2024-12-22] MEDS: Ketorolac 30 MG/ML Syringe IV ×4 (03:55→22:34)
[2024-12-22] MEDS: 0.9% Saline Lock 10 ML Syringe IV ×4 (03:55→22:34)
[2024-12-22] MEDS: Acetaminophen 500 MG Tablet 1000 MG PO ×4 (03:56→22:34)
--- NOTE | 2024-12-22 05:36 | NURSING ---
epidural catheter removed, blue tip intact.
[2024-12-22] MEDS: Senna/Docusate Sodium 1 Tablet PO (10:04)
[2024-12-22] MEDS: Enoxaparin 40 MG/0.4 ML Syringe SC (14:47)
[2024-12-23 00:05] VITALS: BP 112/66; PULSE 89; RESP 14; TEMP 36.3; O2SAT 98
--- NOTE | 2024-12-23 00:16 | NURSING ---
report given to lala MURPHY. that RN to assume care of couplet at this time.
[2024-12-23] MEDS: Enoxaparin 40 MG/0.4 ML Syringe SC ×2 (03:24→16:38)
[2024-12-23] MEDS: Ibuprofen 600 MG Tablet PO ×4 (03:24→21:57)
[2024-12-23] MEDS: Acetaminophen 500 MG Tablet 1000 MG PO ×4 (04:20→22:42)
[2024-12-23 04:25] VITALS: BP 110/62; PULSE 94; RESP 16; TEMP 36.4; O2SAT 98
[2024-12-23 06:35] LABS: Hematocrit 23.2 % (37-47); Hemoglobin 7.3 g/dL (12.0-15.0); Mean Corp Hgb Conc 31.5 g/dL (32-36); Mean Corpuscular Hgb 24.8 pg (27.0-32.0); Mean Corpuscular Volume 78.9 fL (81-99); Mean Platelet Vol. 12.3 fl (6.2-12.0); Platelet Count 144 K/mm3 (150-450); RBC Distribution Width SD 57.1 fl (35.1-43.9); Red Blood Count 2.94 M/mm3 (4.2-5.4); White Blood Count 16.3 K/mm3 (4.4-11.0)
--- NOTE | 2024-12-23 08:07 | PCM.PN.CNM ---
Subjective Subjective Patient doing well without complaints. Tolerating PO. Ambulating and voiding without difficulty. Feeding well. Denies chest pain, shortness of breath, calf pain/swelling, fevers, chills, lightheadedness. Objective Data Objective Data Vital Signs: Vital Signs Temp Pulse Resp BP Pulse Ox O2 Del Method 97.6 F L 94 16 110/62 98 Room Air 12/23/24 04:25 12/23/24 04:25 12/23/24 04:25 12/23/24 04:25 12/23/24 04:12/23/24 04:25 Oxygen Delivery Method Room Air Weight: 187 lb Body Mass Index (BMI) 32.1 Intake & Output: Intake and Output for Last 24 Hours 12/21/24 12/22/24 12/23/24 23:59 23:59 23:59 Intake Total 3017.74 / 3017.74 1153.15 / 1153.15 Output Total 1500 / 1500 4800 / 4800 Balance 1517.74 / 1517.74 -3646.85 / -3646.85 - -1 Lab / Micro Data 12/23/24 06:10 Labs: Laboratory Results - last 24 hr 12/23/24 06:10: WBC 16.3 H, RBC 2.94 L, Hgb 7.3 L, Hct 23.2 L, MCV 78.9 L, MCH 24.8 L, MCHC 31.5 L, RDW Std Deviation 57.1 H, RDW Coeff of Kim 20.0 H, Plt Count 144 L, MPV 12.3 H Physical Exam Const alert and oriented x3 HEENT normocephalic Chest inspection of chest normal and inspection of breasts normal Resp normal respiratory effort and normal air movement Cardio regular rate and regular rhythm GI normal to inspection, nondistended, normoactive bowel sounds Uterus Palpation: uterus fundus firm Extremity normal to inspection, full ROM, no calf tenderness and no pedal edema Skin no rashes or lesions noted Psych mental status grossly normal Assessment & Plan (1) Dichorionic diamniotic twin gestation: COMMENT: weekly NSTs at 36 weeks and growth q4 weeks. Confirmed by MFM 05/30/24, Monozygotic identical twins from NIPT (2) Supervision of high-risk : COMMENT: PRR , MANDI 01/05, girls- : Cheo (3) (spontaneous vaginal delivery): COMMENT: twin A JV (4) delivery delivered: COMMENT: twin B JV PLAN: Plan s/p LTCS PPD # 1 1. routine post vaginal and care 2. breast feeding- support given 3. rh positive 4. rubella immune 5. plan d/c home tomorrow
[2024-12-23 08:50] VITALS: BP 102/64; PULSE 97; RESP 16; TEMP 36.3; O2SAT 98
[2024-12-23] MEDS: Senna/Docusate Sodium 1 Tablet PO (10:22)
[2024-12-23] MEDS: Ferrous Gluconate 324 MG Tablet PO ×2 (10:22→19:12)
--- NOTE | 2024-12-23 14:25 | CASEMGMT ---
Social Work Assessment Labor and Delivery Unit Patient Address: [address] [place] [id number] Phone number: [phone] Date of Referral: 12/22/2024 Time of Referral: 10:59 Referred By: Dilia Hope Date of Intervention: 12/23/2024 Time of Intervention: 14:26 Reason for Referral:? History of depression and ADHD History obtained from: Medical records and mother of baby (MOB). ? Household composition: MOB, Father of baby ( FOB: Eusebio Elizabeth) and their daughters/twins baby A: Randy Elizabeth and baby A: Tanesha Elizabeth, both born on 12/22/2022 Patient's parent/guardian status:? ?MOB and FOB have been together for 5 years and for 3 of those years. MOB described a positive relationship with the FOB and denied and safety concerns/domestic violence. Medical History: MOB received PNC through [place] beginning at 8 weeks and 6 days. Visits were observed to be routine. Apgars: Baby A: 8 and 9 (vaginal ) and Baby B: 7 and 9 (). Weight: Baby A: 5lbs, 11 oz. Baby B: 5lbs, 6 oz. Screedman/Laborer: Dr. Wihteside. Educational Status: MOB denied any issues or concerns with reading or writing. MOB earned her Master?s degree and the FOB earned a Bachelor?s of Science degree. Financial Status: MOB reported the household income is sufficient to meet the needs of her family at this time. 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 The FOB is in the process of opening up his own Insurance company in May and will be working from home for the next month or longer. Supplies: MOB reported she has all of the supplies she needs for baby at this time including but not limited to: Car Seat, bassinet, crib, diapers, bottles, breast pump and clothing. Childcare/Caregiver(s):? MOB reported she and the FOB will both provide care for the baby and during the times when the MOB and FOB are working, various family members will assist in providing childcare. Transportation:? 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 No transportation issues identified. Programs/Agencies Involved: MOB denied any current programs or agencies involved at this time. ??? Children Services/Legal Issues:? Denied. Behavioral Health Issues: ??Mental Health History:? MOB reported she has ADHD and was on meds prior to her which she stated was very helpful.? MOB denied any depression and stated that she had been experiencing symptoms of anxiety but the medication that was used to treat her was a depression medication. Once the MOB was treated for her ADHD, MOB stated her anxiety went away. The FOB also has ADHD. ??Substance Use History: Denied. ?Family History:? Denied. ?Drug Screens: Not obtained for the MOB or of newborns. Family/Social Stressors:? Denied. Support Systems: Ample. MOB identified ?s maternal grandmother (MGM), maternal aunt, ?paternal grandparents (PGP?s), and paternal aunt and uncle as supports.? MOB also described the FOB as a support. Depression/Shaken Baby/Safe Sleeping: plant operations worker provided verbal and written education on PPD, Safe Sleeping and Shaken Baby.? MOB verbalized an understanding. ??? ASSESSMENT:? MOB provided consent to social work visit. At the time of visit, the FOB was just leaving and the MGM was present which MOB and FOB were agreeable to. The MOB was in the hospital bed holding baby B and the MGM was sitting in a nearby chair holding baby B. During the time the FOB was present, he was observed to be very helpful in getting things for the MOB and for the MGM.? During the assessment, the MOB was very engaged and cooperative. Both the MOB and MGM appeared to be attached and bonded and were very attentive to newborns needs and was very gentle. No concerns were reported or observed. No needs identified at this time. Safe Plan of Care for related to substance use: N/A; not needed. ? PLAN:? Baby to be discharged home.? plant operations worker also provided written information on depression, depression resources and Help Me Grow. ?No other services requested or indicated. Dilia Werner, ANTENNA MACHINE OPERATOR, CLINICAL TRIALS SYSTEMS ADMINISTRATOR
[2024-12-23 16:40] VITALS: BP 92/73; PULSE 78; RESP 16; TEMP 36.6
[2024-12-23 20:08] VITALS: BP 111/67; PULSE 79; RESP 16; TEMP 36.4; O2SAT 99
[2024-12-24] MEDS: Ibuprofen 600 MG Tablet PO ×2 (03:19→09:04)
[2024-12-24] MEDS: Enoxaparin 40 MG/0.4 ML Syringe SC (03:19)
[2024-12-24 03:27] VITALS: BP 107/68; PULSE 88; RESP 16; TEMP 36.6; O2SAT 99
[2024-12-24] MEDS: Acetaminophen 500 MG Tablet 1000 MG PO ×2 (04:16→10:13)
[2024-12-24 07:30] VITALS: BP 106/70; PULSE 80; RESP 18; TEMP 36.2; O2SAT 98
--- NOTE | 2024-12-24 08:05 | PCM.PN.CNM ---
Subjective Subjective Patient doing well without complaints. Tolerating PO. Ambulating and voiding without difficulty. Feeding well. Denies chest pain, shortness of breath, calf pain/swelling, fevers, chills, lightheadedness. Objective Data Objective Data Vital Signs: Vital Signs Temp Pulse Resp BP Pulse Ox O2 Del Method 97.8 F 88 16 107/68 99 Room Air 12/24/24 03:27 12/24/24 03:27 12/24/24 03:27 12/24/24 03:27 12/24/24 03:27 12/24/24 03:27 Oxygen Delivery Method Room Air Weight: 187 lb Body Mass Index (BMI) 32.1 Intake & Output: Intake and Output for Last 24 Hours 12/22/24 12/23/24 12/24/24 23:59 23:59 23:59 Intake Total 1153.15 / 1153.15 Output Total 4800 / 4800 Balance -3646.85 / -3646.85 - -1 Lab / Micro Data 12/23/24 06:10 Physical Exam Const alert and oriented x3 HEENT normocephalic Chest inspection of chest normal and inspection of breasts normal Resp normal respiratory effort and normal air movement Cardio regular rate and regular rhythm GI normal to inspection, nondistended, normoactive bowel sounds Uterus Palpation: uterus fundus firm Extremity normal to inspection, full ROM, no calf tenderness and no pedal edema Skin no rashes or lesions noted Psych mental status grossly normal Assessment & Plan (1) delivery delivered: COMMENT: twin B JV (2) Anemia affecting : (3) Dichorionic diamniotic twin gestation: COMMENT: weekly NSTs at 36 weeks and growth q4 weeks. Confirmed by MFM 05/30/24, Monozygotic identical twins from NIPT PLAN: Plan s/p LTCS PPD # 2 1. routine post care 2. breast feeding- support given 3. rh positive 4. rubella immune 5. d/c home today
--- NOTE | 2024-12-24 08:06 | PCM.DC.SUM ---
Providers Date of Admission: 12/21/24 Primary Care Physician: Dr. Kenneth Dave MD Reason For Visit: INDUCTION Diagnosis Discharge Diagnosis (1) delivery delivered: Status: Acute Code(s): O82 - Encounter for delivery without indication (2) Anemia affecting : Status: Acute Code(s): O99.019 - Anemia complicating , unspecified trimester (3) Dichorionic diamniotic twin gestation: Status: Acute Code(s): O30.049 - Twin , dichorionic/diamniotic, unspecified trimester Plan s/p LTCS PPD # 2 1. routine post care 2. breast feeding- support given 3. rh positive 4. rubella immune 5. d/c home today Medications at Discharge Home Medications docosahexaenoic acid 200 mg capsule ( DHA) 1 mg PO DAILY 05/23/24 Hospital Course Operations section Procedures None Summary of Care Provided Minutes Spent on Discharge: 15 Hospital Course: G1 presented for IOL for di-di twins. twin A delivered vaginally, twin B required c/s. drop in h&h, po iron added otherwise normal pp course. Physical Exam Const alert and oriented x3 HEENT normocephalic Chest inspection of chest normal and inspection of breasts normal Resp normal respiratory effort and normal air movement Cardio regular rate and regular rhythm GI normal to inspection, nondistended, normoactive bowel sounds Uterus Palpation: uterus fundus firm Extremity normal to inspection, full ROM, no calf tenderness and no pedal edema Skin no rashes or lesions noted Psych mental status grossly normal Weight / BMI Weight Weight: 187 lb Body Mass Index (BMI) 32.1 ABG / Lab / Microbiology Data 12/23/24 06:10 D/C Instructions Discharge Diet: No restrictions May resume sexual activity in: 4-6 weeks Weight Bearing Status: Full weight bearing Call your doctor if your incision/area has: Continuous Slow Oozing, Sudden Increased Bleeding, Increased Pain/ Swelling, Increased Redness and Foul Smelling Discharge Call your doctor if you observe: Fever of 101 or Higher and Using more than 1 pad per hour Suture Line Care: Avoid Pulling/Pushing and Avoid Pinching/Bending Cleanse incision/area with: Soap & Water and Keep Dressing Clean & Dry DC O2, CPAP, BIPAP Needs Home O2 Discharge instructions: No Please Follow Up With: Dilia Hope DO When: Call [phone] to make an appointment for an incision check in 1-2 weeks. Meaningful Use Info Meaningful Use Meaningful Use Diagnoses (Choose all that apply): None applicable Ischemic Stroke Statin Dosing Therapy Reference: STATIN DOSE THERAPY REFERENCE: * Patients > 75 years receive moderate or high dose statin therapy. * Patients 75 years or YOUNGER should receive HIGH intensity statin dose unless contraindicated. You will be required to document reason for non-treatment if statin daily dose does not meet guidelines. HIGH DOSE STATIN THERAPY DAILY Atorvastatin > than or = to 40 mg Rosuvastatin > than or = to 20 mg Amlodipine + Atorvastatin > than or = to 2.5/40 mg Ezetimibe + Simvastatin 10/80 mg Simvastatin 80mg Discharge Plan Admission Admit Date/Time: 12/21/24 07:17 Attending Provider: Dilia Hope Primary Care Provider: Kenneth Dave Discharge Orders/Prescriptions Prescriptions: No Action DHA 200 mg capsule 1 mg PO DAILY Referrals / Follow Up: Kenneth Dave MD [Primary Care Provider] - Disposition Disposition (needs filled in before D/C Order can be placed): Home, Self Care
[2024-12-24] MEDS: Ferrous Gluconate 324 MG Tablet PO ×2 (09:04→12:15)
[2024-12-24] MEDS: Senna/Docusate Sodium 1 Tablet PO (10:13)
[2024-12-28 11:20] LABS: Pathology Specimen OB SEE PATHOLOGY REPORT
== END 2024-12-24 15:20 | disposition home or self-care (01) | DRG 788 ==
PROVIDERS: Admitting Provider Obstetrics & Gynecology; PCP Family Medicine; Referring Provider Obstetrics & Gynecology; Visit Provider Obstetrics & Gynecology
DX: O30.043 Twin pregnancy, dichorionic/diamniotic, third trimester (principal); Z37.2 Twins, both liveborn; D50.9 Iron deficiency anemia, unspecified; M62.08 Separation of muscle (nontraumatic), other site; O99.892 Other specified diseases and conditions complicating childbirth; F90.9 Attention-deficit hyperactivity disorder, unspecified type; O99.02 Anemia complicating childbirth; O99.344 Other mental disorders complicating childbirth; O76 Abnormality in fetal heart rate and rhythm complicating labor and delivery; O64.8XX2 Obstructed labor due to other malposition and malpresentation, fetus 2; O70.0 First degree perineal laceration during delivery; Z3A.37 37 weeks gestation of pregnancy
CPT/HCPCS: 59025; 59050; 74018; 76815; 85025; 85027; 86780; 86850; 86900; 86901; 88307; A4216

== ENCOUNTER → 2025-02-02 | Outpatient (CLI) | payer OTHER, SELFPAY | END | disposition home or self-care (01) | LOC: LABSPEC 14:43 | PROVIDERS: PCP Family Medicine; Referring Provider Obstetrics & Gynecology; Visit Provider Obstetrics & Gynecology | DX: Z12.4 Encounter for screening for malignant neoplasm of cervix (principal) | CPT/HCPCS: 88175; G0145 ==